=== PATIENT | female | born 1990 | race Hispanic/Latino ===

== ENCOUNTER 2021-07-20 13:48 | Outpatient (CLI) | payer OTHER, MEDICAID | END 2021-07-20 13:49 | disposition home or self-care (01) | LOC: CSHULT 13:48 | PROVIDERS: ATTEND Student in an Organized Health Care Education/Training Program | DX: R59.0 Localized enlarged lymph nodes (principal) | CPT/HCPCS: 76536; 76999 ==

== ENCOUNTER 2021-09-21 14:59 | Emergency (ER) | payer OTHER, MEDICAID ==
[2021-09-21 16:52] LABS: #Basophils 0.2 10x3/uL (0.0-0.2); #Eosinphils 1.1 10x3/uL (0.0-0.5); #Monocytes 1.5 10x3/uL (0.0-1.1); #Neutrophils 10.5 10x3/uL (1.5-8.4); %Basophils 0.9 % (0.0-2.0); %Eosinophils 6.3 % (0.0-6.0); %Monocytes 8.7 % (0.0-10.0); %Neutrophils 60.7 % (40.0-75.0); Hemoglobin 13.8 g/dL (12.0-15.5); Mean Corpuscular HGB CONC 32.2 g/dL (32.0-36.0); Mean Corpuscular Hemoglobin 28.5 pg (27.0-33.0); Mean Corpuscular Volume 88.4 fl (81.6-98.3); Mean Platelet Volume 9.9 fl (7.4-10.4); Platelet Count 421 10x3/uL (150-450); RBC Distribution Width 13.8 % (11.5-14.5); Red Blood Cell (RBC) Count 4.84 10x6/uL (3.90-5.03); White Blood Cell (WBC) Count 17.2 10x3/uL (3.5-10.5)
[2021-09-21] MEDS ORDERED: methylPREDNISolone Sod Succ/PF 125 MG/2 ML VIAL ONE (16:54)
[2021-09-21] MEDS ORDERED: Aspirin Chewable 81 MG TAB ONE (16:54)
[2021-09-21] MEDS ORDERED: diphenhydrAMINE 50 MG/ML VIAL ONE (16:55)
[2021-09-21 17:08] LABS: ALT (SGPT) 15 U/L (8-55); AST (SGOT) 13 U/L (5-34); Albumin 4.3 g/dL (3.5-5.0); Alkaline Phosphatase 64 U/L (40-110); Anion Gap 15 mmol/L (10-20); BUN (Urea Nitrogen) 15 mg/dL (7.0-18.7); Bilirubin, Total 0.4 mg/dL (0.2-1.2); CK (CPK) 71 U/L (29-168); Calc. Creatinine Clearance 0 mL/min (70-130); Calcium 9.5 mg/dL (7.8-10.44); Carbon Dioxide 25 mmol/L (22-29); Chloride 105 mmol/L (98-107); Glucose 93 mg/dL (70-105); Lipase 19 U/L (8-78); Potassium 4.1 mmol/L (3.5-5.1); Protein, Total 7.3 g/dL (6.0-8.3); Sodium 141 mmol/L (136-145)
[2021-09-21] MEDS ORDERED: Famotidine/PF 20 mg/2ml Vial ONE (17:13)
[2021-09-21 17:22] LABS: BHCG - Serum Negative (NEGATIVE); Pregs Control Background? CLEAR/WHITE (CLR/WHITE); Pregs Control Bar Appear? YES (CONTROL BAR)
[2021-09-21 17:46] LABS: PTT 32.6 sec (22.0-33.0); Prothrombin Time 10.6 sec (9.5-12.1)
[2021-09-21] MEDS ORDERED: Ondansetron PF 4 MG/2 ML Vial ONE (17:52)
[2021-09-21] MEDS ORDERED: Nitroglycerin 2% Ointment 1 INCH/1 GM Packet ONE (17:52)
[2021-09-21] MEDS ORDERED: Nitroglycerin 0.4 MG TAB 1 EACH ONE (18:54)
[2021-09-21 19:40] LABS: Troponin I Less than 0.010 ng/mL (< 0.028)
[2021-09-21] MEDS ORDERED: Mag-Al Plus 1200 MG/1200 MG/120 MG/30 ML UDCUP ONE (20:26)
[2021-09-21] MEDS ORDERED: Lidocaine Viscous Sol 2% 15 ml UD Cup ONE (20:26)
== END 2021-09-21 20:43 | disposition home or self-care (01) ==
LOC: CSHERS 14:59
DX: R07.9 Chest pain, unspecified (principal); R94.31 Abnormal electrocardiogram [ECG] [EKG]; I25.10 Atherosclerotic heart disease of native coronary artery without angina pectoris; I25.2 Old myocardial infarction; I50.9 Heart failure, unspecified; M32.9 Systemic lupus erythematosus, unspecified; Z86.718 Personal history of other venous thrombosis and embolism; Z79.899 Other long term (current) drug therapy
CPT/HCPCS: 36415; 71045; 71275; 80053; 82550; 83690; 84484; 84703; 85025; 85610; 85730; 93005; 96374; 96375; J1200; J2405; J2930; S0028

== ENCOUNTER 2021-10-14 11:09 | Emergency (ER) | payer OTHER ==
[2021-10-14 12:24] LABS: #Basophils 0.1 10x3/uL (0.0-0.2); %Basophils 0.8 % (0.0-2.0); %Eosinophils 8.4 % (0.0-6.0); %Lymphocytes 23.8 % (18.0-47.0); %Monocytes 8.2 % (0.0-10.0); %Neutrophils 58.6 % (40.0-75.0); Hemoglobin 13.3 g/dL (12.0-15.5); Mean Corpuscular HGB CONC 31.7 g/dL (32.0-36.0); Mean Corpuscular Hemoglobin 27.8 pg (27.0-33.0); Mean Corpuscular Volume 87.7 fl (81.6-98.3); Mean Platelet Volume 9.9 fl (7.4-10.4); Platelet Count 319 10x3/uL (150-450); RBC Distribution Width 13.4 % (11.5-14.5); Red Blood Cell (RBC) Count 4.78 10x6/uL (3.90-5.03)
[2021-10-14 12:50] LABS: ALT (SGPT) 22 U/L (8-55); AST (SGOT) 21 U/L (5-34); Albumin 3.9 g/dL (3.5-5.0); Alkaline Phosphatase 54 U/L (40-110); Anion Gap 11 mmol/L (10-20); BUN (Urea Nitrogen) 11 mg/dL (7.0-18.7); Bilirubin, Total 0.6 mg/dL (0.2-1.2); Calc. Creatinine Clearance 0 mL/min (70-130); Calcium 9.2 mg/dL (7.8-10.44); Carbon Dioxide 27 mmol/L (22-29); Chloride 100 mmol/L (98-107); Glucose 94 mg/dL (70-105); Potassium 4.1 mmol/L (3.5-5.1); Protein, Total 6.9 g/dL (6.0-8.3); Sodium 134 mmol/L (136-145)
[2021-10-14] MEDS ORDERED: Morphine 4 MG/ML VIAL ONE (14:18)
[2021-10-14] MEDS ORDERED: HYDROcodone/Acetaminophen 5/325 mg Tablet ONE (16:24)
[2021-10-14] MEDS ORDERED: Bumetanide 1 MG TAB PO SCH (17:00)
== END 2021-10-14 17:25 | disposition home or self-care (01) ==
LOC: CSHERS 11:09
DX: I50.9 Heart failure, unspecified (principal); I25.10 Atherosclerotic heart disease of native coronary artery without angina pectoris; I25.2 Old myocardial infarction; M32.9 Systemic lupus erythematosus, unspecified; C92.40 Acute promyelocytic leukemia, not having achieved remission
CPT/HCPCS: 36415; 71045; 80053; 83880; 84484; 85025; 93005; 93970; 94760; 96374; J2270

== ENCOUNTER 2022-02-02 14:43 | Outpatient (CLI) | payer OTHER, MEDICAID | END 2022-02-02 14:44 | disposition home or self-care (01) | LOC: CSHCT 14:43 | PROVIDERS: ATTEND Internal Medicine Cardiovascular Disease | DX: R55 Syncope and collapse (principal) | CPT/HCPCS: 70450 ==

== ENCOUNTER 2022-10-15 08:58 | Outpatient (CLI) | payer OTHER | END 2022-10-15 08:59 | disposition home or self-care (01) | LOC: CSHWCC 08:58 | PROVIDERS: ATTEND Nurse Practitioner Family | DX: T81.89XD Other complications of procedures, not elsewhere classified, subsequent encounter (principal) | CPT/HCPCS: 29445; 99203; G0463 ==

== ENCOUNTER 2022-10-20 08:35 | Outpatient (CLI) | payer OTHER | END 2022-10-20 08:36 | disposition home or self-care (01) | LOC: CSHWCC 08:35 | PROVIDERS: ATTEND Nurse Practitioner Family | DX: T81.89XD Other complications of procedures, not elsewhere classified, subsequent encounter (principal) ==

== ENCOUNTER 2022-10-26 08:27 | Outpatient (CLI) | payer OTHER | END 2022-10-26 08:28 | disposition home or self-care (01) | LOC: CSHWCC 08:27 | PROVIDERS: ATTEND Nurse Practitioner Family | DX: T81.89XD Other complications of procedures, not elsewhere classified, subsequent encounter (principal) ==

== ENCOUNTER 2022-10-29 11:37 | Outpatient (CLI) | payer OTHER | END 2022-10-29 11:38 | disposition home or self-care (01) | LOC: CSHWCC 11:37 | PROVIDERS: ATTEND Nurse Practitioner Family | DX: T81.89XD Other complications of procedures, not elsewhere classified, subsequent encounter (principal) ==

== ENCOUNTER 2022-10-30 17:13 | Emergency (ER) | payer MEDICAID ==
[~2022-10-30 17:13] MED LIST: Iopamidol 370 76% 100 ML VIAL ONE
[2022-10-30] MEDS ORDERED: diphenhydrAMINE 50 MG/ML VIAL ONE (18:26)
[2022-10-30] MEDS ORDERED: Famotidine/PF 20 mg/2ml Vial ONE (18:27)
[2022-10-30] MEDS ORDERED: methylPREDNISolone Sod Succ 40 MG VIAL ONE (18:27)
[2022-10-30 18:34] LABS: #Basophils 0.2 10x3/uL (0.0-0.2); #Eosinphils 0.7 10x3/uL (0.0-0.5); #Monocytes 1.8 10x3/uL (0.0-1.1); %Basophils 0.8 % (0.0-2.0); %Lymphocytes 22.4 % (18.0-47.0); %Monocytes 9.9 % (0.0-10.0); %Neutrophils 62.2 % (40.0-75.0); Hemoglobin 12.1 g/dL (12.0-15.5); Mean Corpuscular HGB CONC 31.8 g/dL (32.0-36.0); Mean Corpuscular Hemoglobin 27.5 pg (27.0-33.0); Mean Corpuscular Volume 86.6 fl (81.6-98.3); Mean Platelet Volume 10.3 fl (7.4-10.4); Platelet Count 372 10x3/uL (150-450); RBC Distribution Width 15.1 % (11.5-14.5); White Blood Cell (WBC) Count 17.7 10x3/uL (3.5-10.5)
[2022-10-30 19:01] LABS: ALT (SGPT) 18 U/L (8-55); AST (SGOT) 20 U/L (5-34); Albumin 4.1 g/dL (3.5-5.0); Alkaline Phosphatase 51 U/L (40-110); Anion Gap 15 mmol/L (10-20); BUN (Urea Nitrogen) 15 mg/dL (7.0-18.7); Bilirubin, Total 0.2 mg/dL (0.2-1.2); Calc. Creatinine Clearance 0 mL/min (70-130); Calcium 9.9 mg/dL (7.8-10.44); Carbon Dioxide 23 mmol/L (22-29); Chloride 103 mmol/L (98-107); Estimated GFR 95; Globulin 3.3 g/dL (2.4-3.5); Glucose 85 mg/dL (70-105); Potassium 3.8 mmol/L (3.5-5.1); Protein, Total 7.4 g/dL (6.0-8.3); Sodium 137 mmol/L (136-145)
[2022-10-30] MEDS ORDERED: Ondansetron PF 4 MG/2 ML Vial ONE (19:57)
[2022-10-30] MEDS ORDERED: Morphine 2 MG/ML VIAL ONE (19:58)
[2022-10-30] MEDS ORDERED: Morphine 4 MG/ML VIAL ONE (20:33)
== END 2022-10-30 20:45 | disposition home or self-care (01) ==
LOC: CSHERS 17:13
DX: M79.661 Pain in right lower leg (principal); R07.89 Other chest pain; I25.10 Atherosclerotic heart disease of native coronary artery without angina pectoris; Z86.718 Personal history of other venous thrombosis and embolism
CPT/HCPCS: 80053; 84484; 85025; 93005; 96374; 96375; 96376; J1200; J2270; J2405; J2920; Q9967; S0028

== ENCOUNTER 2022-11-02 09:14 | Outpatient (CLI) | payer MEDICAID | END 2022-11-02 09:15 | disposition home or self-care (01) | LOC: CSHWCC 09:14 | PROVIDERS: ATTEND Nurse Practitioner Family | DX: T81.89XD Other complications of procedures, not elsewhere classified, subsequent encounter (principal) | CPT/HCPCS: 99213; G0463 ==

== ENCOUNTER 2022-11-09 08:11 | Outpatient (CLI) | payer MEDICAID | END 2022-11-09 08:12 | disposition home or self-care (01) | LOC: CSHWCC 08:11 | PROVIDERS: ATTEND Nurse Practitioner Family | DX: T81.89XD Other complications of procedures, not elsewhere classified, subsequent encounter (principal) ==

== ENCOUNTER 2022-11-12 08:08 | Outpatient (CLI) | payer MEDICAID | END 2022-11-12 08:09 | disposition home or self-care (01) | LOC: CSHWCC 08:08 | PROVIDERS: ATTEND Nurse Practitioner Family | DX: T81.89XD Other complications of procedures, not elsewhere classified, subsequent encounter (principal) | CPT/HCPCS: 99212; G0463 ==

== ENCOUNTER 2022-11-16 10:49 | Outpatient (CLI) | payer MEDICAID | END 2022-11-16 10:50 | disposition home or self-care (01) | LOC: CSHWCC 10:49 | PROVIDERS: ATTEND Nurse Practitioner Family | DX: T81.89XD Other complications of procedures, not elsewhere classified, subsequent encounter (principal) | CPT/HCPCS: 99213; G0463 ==

== ENCOUNTER 2022-11-23 16:04 | Emergency (ER) | payer MEDICAID, OTHER ==
[2022-11-23] MEDS ORDERED: HYDROcodone/Acetaminophen 5/325 mg Tablet ONE (17:38)
== END 2022-11-23 17:36 | disposition home or self-care (01) ==
LOC: CSHERS 16:04
DX: S81.831A Puncture wound without foreign body, right lower leg, initial encounter (principal); I25.10 Atherosclerotic heart disease of native coronary artery without angina pectoris; X58.XXXA Exposure to other specified factors, initial encounter
CPT/HCPCS: 99283

== ENCOUNTER 2022-11-24 11:56 | Outpatient (CLI) | payer MEDICAID | END 2022-11-24 11:57 | disposition home or self-care (01) | LOC: CSHWCC 11:56 | PROVIDERS: ATTEND Nurse Practitioner Family | DX: T81.89XS Other complications of procedures, not elsewhere classified, sequela (principal) ==

== ENCOUNTER 2022-11-24 12:41 | Inpatient (IN) | payer MEDICAID ==
[2022-11-24 13:54] LABS: Hemoglobin 13.1 g/dL (12.0-15.5); Mean Corpuscular HGB CONC 32.5 g/dL (32.0-36.0); Mean Corpuscular Hemoglobin 26.7 pg (27.0-33.0); Mean Corpuscular Volume 82.1 fl (81.6-98.3); Mean Platelet Volume 9.8 fl (7.4-10.4); Platelet Count 419 10x3/uL (150-450); RBC Distribution Width 14.6 % (11.5-14.5); Red Blood Cell (RBC) Count 4.91 10x6/uL (3.90-5.03); White Blood Cell (WBC) Count 23.9 10x3/uL (3.5-10.5)
[2022-11-24 13:55] LABS: ALT (SGPT) 28 U/L (8-55); AST (SGOT) 20 U/L (5-34); Albumin 4.2 g/dL (3.5-5.0); Alkaline Phosphatase 58 U/L (40-110); Anion Gap 14 mmol/L (10-20); BUN (Urea Nitrogen) 10 mg/dL (7.0-18.7); Bilirubin, Total 0.5 mg/dL (0.2-1.2); Calc. Creatinine Clearance 0 mL/min (70-130); Calcium 9.5 mg/dL (7.8-10.44); Carbon Dioxide 19 mmol/L (22-29); Chloride 103 mmol/L (98-107); Estimated GFR 100; Globulin 3.3 g/dL (2.4-3.5); Glucose 111 mg/dL (70-105); Potassium 3.5 mmol/L (3.5-5.1); Protein, Total 7.5 g/dL (6.0-8.3); Sodium 132 mmol/L (136-145)
[2022-11-24 14:05] LABS: MDiff Complete? YES
[2022-11-24 14:07] LABS: Eosinophils 1 % (0-10); Lymphocytes 11 % (21-51); Monocytes 4 % (0-10); Neutrophil 84 % (42-75)
[2022-11-24 14:09] LABS: Platelet Morphology Comment Appears Adequate; RBC Morphology Normal
[2022-11-24] MEDS ORDERED: Ondansetron PF 4 MG/2 ML Vial ONE (15:06)
[2022-11-24] MEDS ORDERED: Morphine 4 MG/ML VIAL ONE ×3 (15:06→20:06)
[2022-11-24] MEDS ORDERED: cefTRIAXone\\ROCEPHIN 2 GM VIAL ONE (15:07)
[2022-11-24] MEDS ORDERED: Acetaminophen 325 MG TAB PO PRN (17:47)
[2022-11-24] MEDS ORDERED: Ondansetron ODT 4 MG TAB PO PRN (17:47)
[2022-11-24] MEDS ORDERED: Sodium Chloride 0.9% 1,000 ML IV SCH (18:00)
[2022-11-24] MEDS ORDERED: Promethazine HCl 25 MG/ML VIAL ONE (18:08)
[2022-11-24] MEDS: Morphine 4 MG/ML VIAL SLOW IVP PRN (20:28)
[2022-11-25] MEDS: Morphine 4 MG/ML VIAL SLOW IVP PRN ×6 (00:28→22:35)
[2022-11-25] MEDS: Gabapentin 300 MG CAP PO SCH ×4 (00:28→22:37)
[2022-11-25] MEDS: Atorvastatin Calcium 40 MG TAB PO SCH ×2 (00:29→22:38)
[2022-11-25] MEDS: Sacubitril 49 MG/Valsartan 51 MG TABLET PO SCH ×3 (00:45→22:38)
[2022-11-25 00:59] VITALS: BMI 56.7
[2022-11-25 05:07] LABS: #Basophils 0.1 10x3/uL (0.0-0.2); #Eosinphils 0.3 10x3/uL (0.0-0.5); #Monocytes 0.9 10x3/uL (0.0-1.1); #Neutrophils 7.3 10x3/uL (1.5-8.4); %Eosinophils 2.8 % (0.0-6.0); %Lymphocytes 24.8 % (18.0-47.0); %Neutrophils 62.7 % (40.0-75.0); Hemoglobin 12.3 g/dL (12.0-15.5); Mean Corpuscular HGB CONC 31.8 g/dL (32.0-36.0); Mean Corpuscular Hemoglobin 26.7 pg (27.0-33.0); Mean Corpuscular Volume 83.9 fl (81.6-98.3); Mean Platelet Volume 10.4 fl (7.4-10.4); Platelet Count 376 10x3/uL (150-450); RBC Distribution Width 14.7 % (11.5-14.5); Red Blood Cell (RBC) Count 4.61 10x6/uL (3.90-5.03); White Blood Cell (WBC) Count 11.6 10x3/uL (3.5-10.5)
[2022-11-25] MEDS: Ondansetron PF 4 MG/2 ML Vial IVP PRN (05:14)
[2022-11-25 05:35] LABS: Anion Gap 14 mmol/L (10-20); BUN (Urea Nitrogen) 7 mg/dL (7.0-18.7); Calc. Creatinine Clearance 228 mL/min (70-130); Calcium 9.2 mg/dL (7.8-10.44); Carbon Dioxide 22 mmol/L (22-29); Chloride 104 mmol/L (98-107); Estimated GFR 107; Glucose 109 mg/dL (70-105); Potassium 3.5 mmol/L (3.5-5.1); Sodium 136 mmol/L (136-145)
[2022-11-25] MEDS: FLUoxetine HCl 20 MG CAP PO SCH (08:18)
[2022-11-25] MEDS: Aspirin Chewable 81 MG TAB PO SCH (08:18)
[2022-11-25] MEDS: Clindamycin/D5W 900 MG in Premix Bag 1 BAG IVPB SCH ×2 (15:30→22:34)
[2022-11-25] MEDS ORDERED: diphenhydrAMINE 50 MG/ML VIAL IVP SCH (19:15)
[2022-11-25] MEDS ORDERED: methylPREDNISolone Sod Succ/PF 125 MG/2 ML VIAL IVP SCH (19:15)
[2022-11-25] MEDS ORDERED: Famotidine/PF 20 mg/2ml Vial SLOW IVP SCH (19:15)
[2022-11-25] MEDS ORDERED: Bumetanide 1 MG TAB PO SCH (21:00)
[2022-11-25] MEDS ORDERED: Vancomycin 1.5 GRAM/300 ML BAG IVPB SCH (21:00)
[2022-11-25] MEDS: Bumetanide 1 MG TAB PO SCH (22:37)
[2022-11-25] MEDS: Carvedilol 25 MG TAB PO SCH (22:37)
[2022-11-26] MEDS: Promethazine HCl 12.5 MG in Sodium Chloride 0.9% 50 ML IVPB PRN ×2 (01:05→09:23)
[2022-11-26] MEDS: Morphine 4 MG/ML VIAL SLOW IVP PRN ×5 (02:01→23:31)
[2022-11-26 05:20] LABS: Anion Gap 14 mmol/L (10-20); BUN (Urea Nitrogen) 7 mg/dL (7.0-18.7); Calc. Creatinine Clearance 177 mL/min (70-130); Calcium 9.3 mg/dL (7.8-10.44); Carbon Dioxide 23 mmol/L (22-29); Chloride 104 mmol/L (98-107); Estimated GFR 79; Glucose 164 mg/dL (70-105); Potassium 3.7 mmol/L (3.5-5.1); Sodium 137 mmol/L (136-145)
[2022-11-26 05:27] LABS: #Monocytes 0.1 10x3/uL (0.0-1.1); #Neutrophils 4.8 10x3/uL (1.5-8.4); %Basophils 0.7 % (0.0-2.0); %Lymphocytes 17.5 % (18.0-47.0); %Monocytes 0.8 % (0.0-10.0); %Neutrophils 80.5 % (40.0-75.0); Hemoglobin 12.7 g/dL (12.0-15.5); Mean Corpuscular HGB CONC 31.5 g/dL (32.0-36.0); Mean Corpuscular Hemoglobin 26.6 pg (27.0-33.0); Mean Corpuscular Volume 84.3 fl (81.6-98.3); Mean Platelet Volume 10.8 fl (7.4-10.4); Platelet Count 393 10x3/uL (150-450); RBC Distribution Width 14.6 % (11.5-14.5); Red Blood Cell (RBC) Count 4.78 10x6/uL (3.90-5.03)
[2022-11-26] MEDS: Clindamycin/D5W 900 MG in Premix Bag 1 BAG IVPB SCH ×3 (06:38→23:44)
[2022-11-26] MEDS ORDERED: Bumetanide 1 MG TAB PO SCH (09:00)
[2022-11-26] MEDS: FLUoxetine HCl 20 MG CAP PO SCH (09:33)
[2022-11-26] MEDS: Aspirin Chewable 81 MG TAB PO SCH (09:34)
[2022-11-26] MEDS: Carvedilol 25 MG TAB PO SCH ×2 (09:34→23:43)
[2022-11-26] MEDS: Spironolactone 25 MG TAB PO SCH (09:35)
[2022-11-26] MEDS: Gabapentin 300 MG CAP PO SCH ×3 (09:35→23:43)
[2022-11-26] MEDS: Empagliflozin 10 MG TAB PO SCH (09:36)
[2022-11-26] MEDS: Bumetanide 1 MG TAB PO SCH ×2 (09:37→23:43)
[2022-11-26] MEDS: Sacubitril 49 MG/Valsartan 51 MG TABLET PO SCH ×2 (09:37→23:31)
[2022-11-26] MEDS: Fenofibrate Nanocrystallized 145 MG TAB PO SCH (09:37)
[2022-11-26 11:47] LABS: Vancomycin, Trough 17.5 ug/mL
[2022-11-26] MEDS ORDERED: diphenhydrAMINE 50 MG/ML VIAL IVP SCH (13:00)
[2022-11-26] MEDS: Atorvastatin Calcium 40 MG TAB PO SCH (23:44)
[2022-11-27] MEDS: Morphine 4 MG/ML VIAL SLOW IVP PRN ×3 (03:39→13:25)
[2022-11-27] MEDS ORDERED: HYDROcodone/Acetaminophen 10/325 mg Tablet PO SCH (06:15)
[2022-11-27] MEDS: Clindamycin/D5W 900 MG in Premix Bag 1 BAG IVPB SCH ×3 (07:20→21:19)
[2022-11-27] MEDS: Spironolactone 25 MG TAB PO SCH (08:12)
[2022-11-27] MEDS: Sacubitril 49 MG/Valsartan 51 MG TABLET PO SCH ×2 (08:12→21:18)
[2022-11-27] MEDS: Carvedilol 25 MG TAB PO SCH ×2 (08:12→21:13)
[2022-11-27] MEDS: Bumetanide 1 MG TAB PO SCH ×2 (08:12→21:12)
[2022-11-27] MEDS: Aspirin Chewable 81 MG TAB PO SCH (08:12)
[2022-11-27] MEDS: Gabapentin 300 MG CAP PO SCH ×3 (08:12→21:14)
[2022-11-27] MEDS: FLUoxetine HCl 20 MG CAP PO SCH (08:12)
[2022-11-27] MEDS: Fenofibrate Nanocrystallized 145 MG TAB PO SCH (08:12)
[2022-11-27] MEDS: Empagliflozin 10 MG TAB PO SCH (08:16)
[2022-11-27] MEDS: Promethazine HCl 12.5 MG in Sodium Chloride 0.9% 50 ML IVPB PRN (10:03)
[2022-11-27] MEDS ORDERED: HYDROmorphone 2 MG TAB PO PRN (15:23)
[2022-11-27] MEDS ORDERED: Naloxone HCl 0.4 mg/ml Vial IV PRN (15:41)
[2022-11-27] MEDS: Nystatin 500,000 UNITS/5 ML UDCUP SSW SCH ×2 (15:56→21:15)
[2022-11-27] MEDS: Ondansetron PF 4 MG/2 ML Vial IVP PRN (18:13)
[2022-11-27] MEDS: HYDROcodone/Acetaminophen 10/325 mg Tablet PO PRN (21:12)
[2022-11-27] MEDS: Atorvastatin Calcium 40 MG TAB PO SCH (21:13)
[2022-11-28] MEDS: HYDROcodone/Acetaminophen 10/325 mg Tablet PO PRN ×3 (03:11→23:12)
[2022-11-28 04:38] LABS: Anion Gap 14 mmol/L (10-20); BUN (Urea Nitrogen) 19 mg/dL (7.0-18.7); Calc. Creatinine Clearance 125 mL/min (70-130); Calcium 9.1 mg/dL (7.8-10.44); Carbon Dioxide 29 mmol/L (22-29); Chloride 100 mmol/L (98-107); Estimated GFR 52; Glucose 98 mg/dL (70-105); Potassium 3.6 mmol/L (3.5-5.1); Sodium 139 mmol/L (136-145)
[2022-11-28 04:39] LABS: Hemoglobin 12.3 g/dL (12.0-15.5); Mean Corpuscular HGB CONC 31.6 g/dL (32.0-36.0); Mean Corpuscular Hemoglobin 26.3 pg (27.0-33.0); Mean Corpuscular Volume 83.1 fl (81.6-98.3); Mean Platelet Volume 10.4 fl (7.4-10.4); Platelet Count 451 10x3/uL (150-450); RBC Distribution Width 14.9 % (11.5-14.5); Red Blood Cell (RBC) Count 4.68 10x6/uL (3.90-5.03); White Blood Cell (WBC) Count 12.1 10x3/uL (3.5-10.5)
[2022-11-28 05:15] LABS: MDiff Complete? YES
[2022-11-28 05:27] LABS: Eosinophils 1 % (0-10); Lymphocytes 43 % (21-51); Monocytes 12 % (0-10); Neutrophil 41 % (42-75); Reactive Lymphocytes 3 % (0-10)
[2022-11-28 05:28] LABS: Platelet Morphology Comment Appears Adequate; RBC Morphology Normal
[2022-11-28] MEDS: Clindamycin/D5W 900 MG in Premix Bag 1 BAG IVPB SCH ×3 (07:19→21:09)
[2022-11-28] MEDS: Lactated Ringer's 1,000 ML IV SCH ×2 (08:48→16:29)
[2022-11-28] MEDS: Sacubitril 49 MG/Valsartan 51 MG TABLET PO SCH ×2 (08:48→21:06)
[2022-11-28] MEDS: Fenofibrate Nanocrystallized 145 MG TAB PO SCH (08:48)
[2022-11-28] MEDS: Nystatin 500,000 UNITS/5 ML UDCUP SSW SCH ×4 (08:52→21:09)
[2022-11-28] MEDS: Spironolactone 25 MG TAB PO SCH (08:52)
[2022-11-28] MEDS: Aspirin Chewable 81 MG TAB PO SCH (08:52)
[2022-11-28] MEDS: Carvedilol 25 MG TAB PO SCH ×2 (08:52→21:07)
[2022-11-28] MEDS: FLUoxetine HCl 20 MG CAP PO SCH (08:52)
[2022-11-28] MEDS: Gabapentin 300 MG CAP PO SCH ×3 (08:53→21:08)
[2022-11-28] MEDS: Empagliflozin 10 MG TAB PO SCH (08:55)
[2022-11-28] MEDS: Morphine IR Tab 15 MG TAB PO PRN ×2 (16:38→21:05)
[2022-11-28] MEDS: Ondansetron PF 4 MG/2 ML Vial IVP PRN (16:38)
[2022-11-28] MEDS: Atorvastatin Calcium 40 MG TAB PO SCH (21:09)
[2022-11-29] MEDS: Lactated Ringer's 1,000 ML IV SCH ×2 (02:00→08:30)
[2022-11-29] MEDS: HYDROcodone/Acetaminophen 10/325 mg Tablet PO PRN ×2 (03:26→08:18)
[2022-11-29 05:13] LABS: Hemoglobin 11.7 g/dL (12.0-15.5); Mean Corpuscular Hemoglobin 25.9 pg (27.0-33.0); Mean Corpuscular Volume 83.4 fl (81.6-98.3); Mean Platelet Volume 10.8 fl (7.4-10.4); Platelet Count 437 10x3/uL (150-450); RBC Distribution Width 14.7 % (11.5-14.5); Red Blood Cell (RBC) Count 4.52 10x6/uL (3.90-5.03); White Blood Cell (WBC) Count 14.7 10x3/uL (3.5-10.5)
[2022-11-29 05:33] LABS: Anion Gap 14 mmol/L (10-20); BUN (Urea Nitrogen) 15 mg/dL (7.0-18.7); Calc. Creatinine Clearance 134 mL/min (70-130); Calcium 9.1 mg/dL (7.8-10.44); Carbon Dioxide 26 mmol/L (22-29); Chloride 99 mmol/L (98-107); Estimated GFR 57; Glucose 88 mg/dL (70-105); Potassium 3.8 mmol/L (3.5-5.1); Sodium 135 mmol/L (136-145)
[2022-11-29] MEDS: Ondansetron PF 4 MG/2 ML Vial IVP PRN (06:08)
[2022-11-29] MEDS: Clindamycin/D5W 900 MG in Premix Bag 1 BAG IVPB SCH ×2 (06:10→13:32)
[2022-11-29] MEDS: Morphine IR Tab 15 MG TAB PO PRN ×2 (06:16→12:11)
[2022-11-29 06:41] LABS: Band 2 % (5-11); Eosinophils 3 % (0-10); Lymphocytes 34 % (21-51); Monocytes 10 % (0-10); Neutrophil 51 % (42-75)
[2022-11-29 06:42] LABS: MDiff Complete? YES; Platelet Morphology Comment Appears Adequate
[2022-11-29] MEDS: Spironolactone 25 MG TAB PO SCH (08:18)
[2022-11-29] MEDS: Gabapentin 300 MG CAP PO SCH (08:19)
[2022-11-29] MEDS: Sacubitril 49 MG/Valsartan 51 MG TABLET PO SCH (08:19)
[2022-11-29] MEDS: Carvedilol 25 MG TAB PO SCH (08:20)
[2022-11-29] MEDS: Fenofibrate Nanocrystallized 145 MG TAB PO SCH (08:20)
[2022-11-29] MEDS: Aspirin Chewable 81 MG TAB PO SCH (08:20)
[2022-11-29] MEDS: Nystatin 500,000 UNITS/5 ML UDCUP SSW SCH ×2 (08:20→12:12)
[2022-11-29] MEDS: Empagliflozin 10 MG TAB PO SCH (08:20)
[2022-11-29] MEDS: FLUoxetine HCl 20 MG CAP PO SCH (08:20)
[2022-11-29 11:45] VITALS: BP 100/52; TEMP 98.1
== END 2022-11-29 13:30 | disposition home or self-care (01) | DRG 862 ==
LOC: CSHERS 12:41 → CSHERHOLD 18:28 → CSHTELE 11-25 00:03
PROVIDERS: ADMIT Hospitalist; ATTEND Family Medicine
DX: T81.41XA Infection following a procedure, superficial incisional surgical site, initial encounter (principal); A41.9 Sepsis, unspecified organism; I42.8 Other cardiomyopathies; L03.115 Cellulitis of right lower limb; Z68.43 Body mass index [BMI] 50.0-59.9, adult; I50.32 Chronic diastolic (congestive) heart failure; D68.61 Antiphospholipid syndrome; L03.314 Cellulitis of groin; Y83.8 Other surgical procedures as the cause of abnormal reaction of the patient, or of later complication, without mention of misadventure at the time of the procedure; G89.4 Chronic pain syndrome; M32.9 Systemic lupus erythematosus, unspecified; F41.9 Anxiety disorder, unspecified; F32.A Depression, unspecified; E66.9 Obesity, unspecified; K21.9 Gastro-esophageal reflux disease without esophagitis; G43.909 Migraine, unspecified, not intractable, without status migrainosus; Z95.810 Presence of automatic (implantable) cardiac defibrillator; Z98.890 Other specified postprocedural states; Z90.49 Acquired absence of other specified parts of digestive tract; Z90.81 Acquired absence of spleen; I25.2 Old myocardial infarction; Z86.718 Personal history of other venous thrombosis and embolism; Z86.711 Personal history of pulmonary embolism; Z91.041 Radiographic dye allergy status; Z91.040 Latex allergy status; Z88.0 Allergy status to penicillin; Z91.013 Allergy to seafood; Z91.018 Allergy to other foods; Z91.09 Other allergy status, other than to drugs and biological substances; Z79.82 Long term (current) use of aspirin; Z79.899 Other long term (current) drug therapy
CPT/HCPCS: 36415; 74176; 76999; 80048; 80053; 80202; 83605; 84702; 85025; 87040; 87070; 87077; 87205; 94760; 96361; 96365; 96367; 96375; 96376; 97139; J0696; J1200; J2270; J2405; J2550; J2930; J3490; J7030; J7050; J7120; S0028

== ENCOUNTER 2022-11-30 13:00 | Outpatient (CLI) | payer MEDICAID | END 2022-11-30 13:01 | disposition home or self-care (01) | LOC: CSHWCC 13:00 | PROVIDERS: ATTEND Nurse Practitioner Family | DX: T81.89XS Other complications of procedures, not elsewhere classified, sequela (principal) | CPT/HCPCS: 99213; G0463 ==

== ENCOUNTER 2022-12-05 11:52 | Emergency (ER) | payer MEDICAID ==
[2022-12-05] MEDS ORDERED: Clindamycin/D5W 900 MG in Premix Bag 1 BAG IVPB SCH (13:15)
[2022-12-05 15:07] LABS: #Basophils 0.1 10x3/uL (0.0-0.2); #Eosinphils 0.9 10x3/uL (0.0-0.5); #Monocytes 1.4 10x3/uL (0.0-1.1); #Neutrophils 5.2 10x3/uL (1.5-8.4); %Basophils 1.3 % (0.0-2.0); %Eosinophils 9.3 % (0.0-6.0); %Lymphocytes 20.2 % (18.0-47.0); %Monocytes 14.8 % (0.0-10.0); %Neutrophils 54.1 % (40.0-75.0); Hemoglobin 11.7 g/dL (12.0-15.5); Mean Corpuscular HGB CONC 32.4 g/dL (32.0-36.0); Mean Corpuscular Hemoglobin 26.4 pg (27.0-33.0); Mean Corpuscular Volume 81.5 fl (81.6-98.3); Mean Platelet Volume 9.8 fl (7.4-10.4); Platelet Count 464 10x3/uL (150-450); RBC Distribution Width 14.6 % (11.5-14.5); Red Blood Cell (RBC) Count 4.43 10x6/uL (3.90-5.03); White Blood Cell (WBC) Count 9.7 10x3/uL (3.5-10.5)
[2022-12-05] MEDS ORDERED: Ondansetron PF 4 MG/2 ML Vial ONE (15:09)
[2022-12-05] MEDS ORDERED: Morphine 4 MG/ML VIAL ONE (15:09)
[2022-12-05 15:20] LABS: Anion Gap 13 mmol/L (10-20); BUN (Urea Nitrogen) 8 mg/dL (7.0-18.7); Calc. Creatinine Clearance 0 mL/min (70-130); Calcium 9.6 mg/dL (7.8-10.44); Carbon Dioxide 24 mmol/L (22-29); Chloride 104 mmol/L (98-107); Estimated GFR 66; Glucose 99 mg/dL (70-105); Potassium 3.9 mmol/L (3.5-5.1); Sodium 137 mmol/L (136-145)
[2022-12-06] MEDS ORDERED: Morphine 4 MG/ML VIAL ONE (03:56)
[2022-12-06] MEDS ORDERED: cefTRIAXone\\ROCEPHIN 2 GM VIAL ONE (03:56)
== END 2022-12-05 15:55 | disposition home or self-care (01) ==
LOC: CSHERS 11:52
DX: M79.651 Pain in right thigh (principal); I25.10 Atherosclerotic heart disease of native coronary artery without angina pectoris; Z86.711 Personal history of pulmonary embolism; Z86.718 Personal history of other venous thrombosis and embolism; I50.9 Heart failure, unspecified
CPT/HCPCS: 80048; 83605; 85025; 96365; 96375; J2270; J2405; J3490

== ENCOUNTER 2022-12-08 15:10 | Emergency (ER) | payer MEDICAID ==
[2022-12-08] MEDS ORDERED: Morphine 4 MG/ML VIAL ONE ×2 (16:20→18:09)
[2022-12-08] MEDS ORDERED: Ondansetron PF 4 MG/2 ML Vial ONE ×2 (16:20→18:09)
[2022-12-08 16:30] LABS: #Basophils 0.1 10x3/uL (0.0-0.2); #Eosinphils 0.7 10x3/uL (0.0-0.5); #Monocytes 0.8 10x3/uL (0.0-1.1); #Neutrophils 4.5 10x3/uL (1.5-8.4); %Basophils 1.1 % (0.0-2.0); %Eosinophils 7.6 % (0.0-6.0); %Lymphocytes 32.7 % (18.0-47.0); %Neutrophils 49.4 % (40.0-75.0); Hemoglobin 11.6 g/dL (12.0-15.5); Mean Corpuscular Volume 81.2 fl (81.6-98.3); Mean Platelet Volume 10.1 fl (7.4-10.4); Platelet Count 395 10x3/uL (150-450); RBC Distribution Width 15.1 % (11.5-14.5); Red Blood Cell (RBC) Count 4.46 10x6/uL (3.90-5.03); White Blood Cell (WBC) Count 9.1 10x3/uL (3.5-10.5)
[2022-12-08 16:49] LABS: BHCG - Serum Negative (NEGATIVE); Pregs Control Background? CLEAR/WHITE (CLR/WHITE); Pregs Control Bar Appear? YES (CONTROL BAR)
[2022-12-08 16:55] LABS: ALT (SGPT) 17 U/L (8-55); AST (SGOT) 17 U/L (5-34); Albumin 3.9 g/dL (3.5-5.0); Alkaline Phosphatase 42 U/L (40-110); Anion Gap 12 mmol/L (10-20); BUN (Urea Nitrogen) 8 mg/dL (7.0-18.7); Bilirubin, Total 0.2 mg/dL (0.2-1.2); Calc. Creatinine Clearance 0 mL/min (70-130); Calcium 9.4 mg/dL (7.8-10.44); Carbon Dioxide 23 mmol/L (22-29); Chloride 108 mmol/L (98-107); Estimated GFR 88; Globulin 3.2 g/dL (2.4-3.5); Glucose 95 mg/dL (70-105); Potassium 3.8 mmol/L (3.5-5.1); Protein, Total 7.1 g/dL (6.0-8.3); Sodium 139 mmol/L (136-145)
== END 2022-12-08 18:22 | disposition home or self-care (01) ==
LOC: CSHERS 15:10
DX: R07.9 Chest pain, unspecified (principal); Z86.718 Personal history of other venous thrombosis and embolism; I50.9 Heart failure, unspecified; I25.10 Atherosclerotic heart disease of native coronary artery without angina pectoris; I25.2 Old myocardial infarction
CPT/HCPCS: 71045; 80053; 83880; 84484; 84703; 85025; 85379; 93005; 96374; 96375; 96376; J2270; J2405

== ENCOUNTER 2022-12-13 16:21 | Emergency (ER) | payer MEDICAID ==
[2022-12-13 18:08] LABS: ALT (SGPT) 19 U/L (8-55); AST (SGOT) 21 U/L (5-34); Albumin 4.3 g/dL (3.5-5.0); Alkaline Phosphatase 53 U/L (40-110); Anion Gap 14 mmol/L (10-20); BUN (Urea Nitrogen) 11 mg/dL (7.0-18.7); Bilirubin, Total 0.4 mg/dL (0.2-1.2); Calc. Creatinine Clearance 0 mL/min (70-130); Calcium 9.8 mg/dL (7.8-10.44); Carbon Dioxide 20 mmol/L (22-29); Chloride 107 mmol/L (98-107); Estimated GFR 95; Globulin 3.5 g/dL (2.4-3.5); Glucose 92 mg/dL (70-105); Potassium 3.7 mmol/L (3.5-5.1); Protein, Total 7.8 g/dL (6.0-8.3); Sodium 137 mmol/L (136-145)
[2022-12-13 18:42] LABS: #Basophils 0.1 10x3/uL (0.0-0.2); #Eosinphils 0.8 10x3/uL (0.0-0.5); #Monocytes 0.9 10x3/uL (0.0-1.1); #Neutrophils 6.6 10x3/uL (1.5-8.4); %Eosinophils 6.4 % (0.0-6.0); %Lymphocytes 29.9 % (18.0-47.0); %Monocytes 7.4 % (0.0-10.0); Hemoglobin 13.5 g/dL (12.0-15.5); Mean Corpuscular HGB CONC 32.6 g/dL (32.0-36.0); Mean Corpuscular Hemoglobin 25.9 pg (27.0-33.0); Mean Corpuscular Volume 79.3 fl (81.6-98.3); Mean Platelet Volume 10.9 fl (7.4-10.4); Platelet Count 419 10x3/uL (150-450); RBC Distribution Width 15.2 % (11.5-14.5); Red Blood Cell (RBC) Count 5.22 10x6/uL (3.90-5.03)
[2022-12-13] MEDS ORDERED: Ondansetron ODT 4 MG TAB ONE (20:01)
[2022-12-13] MEDS ORDERED: HYDROcodone/Acetaminophen 5/325 mg Tablet ONE (20:02)
== END 2022-12-13 21:25 | disposition home or self-care (01) ==
LOC: CSHERS 16:21
DX: L03.314 Cellulitis of groin (principal); I25.10 Atherosclerotic heart disease of native coronary artery without angina pectoris; Z86.718 Personal history of other venous thrombosis and embolism; I50.9 Heart failure, unspecified
CPT/HCPCS: 36415; 80053; 85025; Q0162

== ENCOUNTER 2022-12-14 08:51 | Outpatient (CLI) | payer MEDICAID | END 2022-12-14 08:52 | disposition home or self-care (01) | LOC: CSHWCC 08:51 | PROVIDERS: ATTEND Nurse Practitioner Family | DX: T81.89XS Other complications of procedures, not elsewhere classified, sequela (principal) | CPT/HCPCS: 99212; G0463 ==

== ENCOUNTER 2022-12-21 11:16 | Emergency (ER) | payer MEDICAID ==
[2022-12-21 13:51] LABS: #Basophils 0.2 10x3/uL (0.0-0.2); #Eosinphils 1.2 10x3/uL (0.0-0.5); #Monocytes 1.5 10x3/uL (0.0-1.1); #Neutrophils 8.3 10x3/uL (1.5-8.4); %Eosinophils 8.2 % (0.0-6.0); %Lymphocytes 22.6 % (18.0-47.0); %Monocytes 10.3 % (0.0-10.0); %Neutrophils 57.5 % (40.0-75.0); Hemoglobin 13.2 g/dL (12.0-15.5); Mean Corpuscular HGB CONC 31.2 g/dL (32.0-36.0); Mean Corpuscular Hemoglobin 25.7 pg (27.0-33.0); Mean Corpuscular Volume 82.3 fl (81.6-98.3); Mean Platelet Volume 10.6 fl (7.4-10.4); Platelet Count 483 10x3/uL (150-450); RBC Distribution Width 15.1 % (11.5-14.5); Red Blood Cell (RBC) Count 5.14 10x6/uL (3.90-5.03); White Blood Cell (WBC) Count 14.4 10x3/uL (3.5-10.5)
[2022-12-21 14:03] LABS: ALT (SGPT) 26 U/L (8-55); AST (SGOT) 31 U/L (5-34); Albumin 4.4 g/dL (3.5-5.0); Alkaline Phosphatase 52 U/L (40-110); Anion Gap 13 mmol/L (10-20); BUN (Urea Nitrogen) 15 mg/dL (7.0-18.7); Bilirubin, Total 0.4 mg/dL (0.2-1.2); Calc. Creatinine Clearance 0 mL/min (70-130); Calcium 9.8 mg/dL (7.8-10.44); Carbon Dioxide 24 mmol/L (22-29); Chloride 104 mmol/L (98-107); Estimated GFR 66; Globulin 3.2 g/dL (2.4-3.5); Glucose 92 mg/dL (70-105); Potassium 4.3 mmol/L (3.5-5.1); Protein, Total 7.6 g/dL (6.0-8.3); Sodium 137 mmol/L (136-145)
[2022-12-21] MEDS ORDERED: HYDROcodone/Acetaminophen 5/325 mg Tablet ONE (14:39)
== END 2022-12-21 14:45 | disposition home or self-care (01) ==
LOC: CSHERS 11:16
DX: L03.115 Cellulitis of right lower limb (principal); D72.829 Elevated white blood cell count, unspecified
CPT/HCPCS: 36415; 80053; 85025

== ENCOUNTER 2023-01-08 14:45 | Emergency (ER) | payer MEDICAID ==
[~2023-01-08 14:45] MED LIST changes: +Iopamidol 300 61% 100 ML VIAL FS ONE; -Iopamidol 370 76% 100 ML VIAL ONE
[2023-01-08] MEDS ORDERED: diphenhydrAMINE 50 MG/ML VIAL ONE (15:37)
[2023-01-08] MEDS ORDERED: Famotidine/PF 20 mg/2ml Vial ONE (15:37)
[2023-01-08] MEDS ORDERED: methylPREDNISolone Sod Succ 40 MG VIAL ONE (15:37)
[2023-01-08 15:39] LABS: #Basophils 0.1 10x3/uL (0.0-0.2); #Eosinphils 1.3 10x3/uL (0.0-0.5); #Monocytes 0.8 10x3/uL (0.0-1.1); #Neutrophils 7.4 10x3/uL (1.5-8.4); %Eosinophils 10.9 % (0.0-6.0); %Monocytes 6.2 % (0.0-10.0); %Neutrophils 60.7 % (40.0-75.0); Hemoglobin 12.6 g/dL (12.0-15.5); Mean Corpuscular HGB CONC 32.1 g/dL (32.0-36.0); Mean Corpuscular Hemoglobin 25.6 pg (27.0-33.0); Mean Corpuscular Volume 79.5 fl (81.6-98.3); Mean Platelet Volume 9.7 fl (7.4-10.4); Platelet Count 408 10x3/uL (150-450); RBC Distribution Width 15.4 % (11.5-14.5); Red Blood Cell (RBC) Count 4.93 10x6/uL (3.90-5.03); White Blood Cell (WBC) Count 12.2 10x3/uL (3.5-10.5)
[2023-01-08 16:01] LABS: Anion Gap 14 mmol/L (10-20); BUN (Urea Nitrogen) 10 mg/dL (7.0-18.7); Calc. Creatinine Clearance 0 mL/min (70-130); Calcium 9.4 mg/dL (7.8-10.44); Carbon Dioxide 21 mmol/L (22-29); Chloride 107 mmol/L (98-107); Estimated GFR 78; Glucose 119 mg/dL (70-105); Potassium 3.9 mmol/L (3.5-5.1); Sodium 138 mmol/L (136-145)
[2023-01-08] MEDS ORDERED: Fentanyl 100 MCG/2 ML VIAL ONE ×2 (16:05→17:55)
[2023-01-08] MEDS ORDERED: Ondansetron PF 4 MG/2 ML Vial ONE (17:12)
== END 2023-01-08 18:05 | disposition home or self-care (01) ==
LOC: CSHERS 14:45
DX: R10.31 Right lower quadrant pain (principal); D72.829 Elevated white blood cell count, unspecified; I50.9 Heart failure, unspecified
CPT/HCPCS: 72193; 80048; 85025; 86900; 86901; 93923; 96374; 96375; 96376; J1200; J2405; J2920; J3010; Q9967; S0028

== ENCOUNTER 2023-01-29 15:13 | Emergency (ER) | payer MEDICAID ==
[2023-01-29] MEDS ORDERED: Ondansetron ODT 4 MG TAB ONE (15:48)
[2023-01-29 16:00] LABS: #Basophils 0.2 10x3/uL (0.0-0.2); #Eosinphils 0.8 10x3/uL (0.0-0.5); #Monocytes 1.1 10x3/uL (0.0-1.1); #Neutrophils 7.7 10x3/uL (1.5-8.4); %Basophils 1.2 % (0.0-2.0); %Eosinophils 6.4 % (0.0-6.0); %Lymphocytes 21.4 % (18.0-47.0); %Monocytes 8.7 % (0.0-10.0); %Neutrophils 61.9 % (40.0-75.0); Hemoglobin 13.2 g/dL (12.0-15.5); Mean Corpuscular HGB CONC 30.6 g/dL (32.0-36.0); Mean Corpuscular Hemoglobin 24.5 pg (27.0-33.0); Mean Corpuscular Volume 80.1 fl (81.6-98.3); Platelet Count 490 10x3/uL (150-450); RBC Distribution Width 17.1 % (11.5-14.5); Red Blood Cell (RBC) Count 5.39 10x6/uL (3.90-5.03); White Blood Cell (WBC) Count 12.4 10x3/uL (3.5-10.5)
[2023-01-29 16:26] LABS: ALT (SGPT) 25 U/L (8-55); AST (SGOT) 24 U/L (5-34); Albumin 4.2 g/dL (3.5-5.0); Alkaline Phosphatase 54 U/L (40-110); Anion Gap 14 mmol/L (10-20); BUN (Urea Nitrogen) 14 mg/dL (7.0-18.7); Bilirubin, Total 0.5 mg/dL (0.2-1.2); Calc. Creatinine Clearance 0 mL/min (70-130); Calcium 9.6 mg/dL (7.8-10.44); Carbon Dioxide 22 mmol/L (22-29); Chloride 102 mmol/L (98-107); Estimated GFR 78; Globulin 3.4 g/dL (2.4-3.5); Glucose 104 mg/dL (70-105); Lipase 12 U/L (8-78); Potassium 3.9 mmol/L (3.5-5.1); Protein, Total 7.6 g/dL (6.0-8.3); Sodium 134 mmol/L (136-145)
[2023-01-29] MEDS ORDERED: Acetaminophen 500 MG TAB ONE (16:51)
== END 2023-01-29 17:20 | disposition home or self-care (01) ==
LOC: CSHERS 15:13
DX: R07.2 Precordial pain (principal); R06.02 Shortness of breath; I25.10 Atherosclerotic heart disease of native coronary artery without angina pectoris; I25.2 Old myocardial infarction; I50.9 Heart failure, unspecified; M79.7 Fibromyalgia; Z86.711 Personal history of pulmonary embolism; Z86.718 Personal history of other venous thrombosis and embolism
CPT/HCPCS: 36415; 71045; 80053; 83690; 84484; 85025; 85379; 93005; Q0162

== ENCOUNTER 2023-02-12 13:36 | Emergency (ER) | payer MEDICAID ==
[2023-02-12 14:43] LABS: #Basophils 0.2 10x3/uL (0.0-0.2); #Eosinphils 1.3 10x3/uL (0.0-0.5); #Monocytes 1.1 10x3/uL (0.0-1.1); #Neutrophils 9.2 10x3/uL (1.5-8.4); %Eosinophils 8.5 % (0.0-6.0); %Lymphocytes 19.7 % (18.0-47.0); %Monocytes 7.5 % (0.0-10.0); %Neutrophils 62.6 % (40.0-75.0); Hemoglobin 13.9 g/dL (12.0-15.5); Mean Corpuscular HGB CONC 32.1 g/dL (32.0-36.0); Mean Corpuscular Hemoglobin 25.8 pg (27.0-33.0); Mean Corpuscular Volume 80.3 fl (81.6-98.3); Mean Platelet Volume 10.1 fl (7.4-10.4); Platelet Count 499 10x3/uL (150-450); RBC Distribution Width 17.2 % (11.5-14.5); Red Blood Cell (RBC) Count 5.39 10x6/uL (3.90-5.03); White Blood Cell (WBC) Count 14.7 10x3/uL (3.5-10.5)
[2023-02-12 15:06] LABS: ALT (SGPT) 20 U/L (8-55); AST (SGOT) 15 U/L (5-34); Albumin 4.2 g/dL (3.5-5.0); Alkaline Phosphatase 72 U/L (40-110); Anion Gap 18 mmol/L (10-20); BUN (Urea Nitrogen) 14 mg/dL (7.0-18.7); Bilirubin, Total 0.1 mg/dL (0.2-1.2); Calc. Creatinine Clearance 0 mL/min (70-130); Calcium 9.4 mg/dL (7.8-10.44); Carbon Dioxide 21 mmol/L (22-29); Chloride 104 mmol/L (98-107); Estimated GFR 91; Globulin 3.5 g/dL (2.4-3.5); Glucose 115 mg/dL (70-105); Lipase 25 U/L (8-78); Potassium 4.3 mmol/L (3.5-5.1); Protein, Total 7.7 g/dL (6.0-8.3); Sodium 139 mmol/L (136-145)
== END 2023-02-12 16:31 | disposition home or self-care (01) ==
LOC: CSHERS 13:36
DX: R00.2 Palpitations (principal); R07.9 Chest pain, unspecified; D72.829 Elevated white blood cell count, unspecified; I25.10 Atherosclerotic heart disease of native coronary artery without angina pectoris; I50.9 Heart failure, unspecified
CPT/HCPCS: 71045; 80053; 83690; 84484; 85025; 93005

== ENCOUNTER 2023-03-10 16:53 | Emergency (ER) | payer MEDICAID ==
[2023-03-10] MEDS ORDERED: Morphine 4 MG/ML VIAL ONE ×2 (17:45→21:34)
[2023-03-10] MEDS ORDERED: Ondansetron PF 4 MG/2 ML Vial ONE (17:45)
[2023-03-10] MEDS ORDERED: methylPREDNISolone Sod Succ 40 MG VIAL ONE (18:08)
[2023-03-10] MEDS ORDERED: diphenhydrAMINE 50 MG/ML VIAL ONE (18:08)
[2023-03-10] MEDS ORDERED: Famotidine/PF 20 mg/2ml Vial ONE (18:08)
[2023-03-10 18:45] LABS: Hemoglobin 13.6 g/dL (12.0-15.5); Mean Corpuscular Hemoglobin 25.6 pg (27.0-33.0); Mean Corpuscular Volume 85.3 fl (81.6-98.3); Mean Platelet Volume 9.3 fl (7.4-10.4); RBC Distribution Width 16.6 % (11.5-14.5); Red Blood Cell (RBC) Count 5.31 10x6/uL (3.90-5.03); White Blood Cell (WBC) Count 13.9 10x3/uL (3.5-10.5)
[2023-03-10 18:46] LABS: Platelet Count 410 10x3/uL (150-450)
[2023-03-10 18:48] LABS: ALT (SGPT) 35 U/L (8-55); AST (SGOT) 38 U/L (5-34); Albumin 4.2 g/dL (3.5-5.0); Alkaline Phosphatase 61 U/L (40-110); Anion Gap 15 mmol/L (10-20); BUN (Urea Nitrogen) 11 mg/dL (7.0-18.7); Bilirubin, Total 0.3 mg/dL (0.2-1.2); Calc. Creatinine Clearance 0 mL/min (70-130); Calcium 9.9 mg/dL (7.8-10.44); Carbon Dioxide 19 mmol/L (22-29); Chloride 105 mmol/L (98-107); Estimated GFR 88; Globulin 4.1 g/dL (2.4-3.5); Glucose 92 mg/dL (70-105); Protein, Total 8.3 g/dL (6.0-8.3); Sodium 134 mmol/L (136-145)
[2023-03-10 19:32] LABS: MDiff Complete? YES
[2023-03-10 19:36] LABS: Eosinophils 6 % (0-10); Lymphocytes 29 % (21-51); Monocytes 2 % (0-10); Neutrophil 63 % (42-75)
[2023-03-10 19:40] LABS: Anisocytosis SLIGHT = 6-15 cells (100X) (0-5/hpf); Poikilocytosis SLIGHT = 6-15 cells (100X) (0-5/hpf)
[2023-03-10 19:41] LABS: Platelet Morphology Comment Appears Adequate
== END 2023-03-10 21:53 | disposition home or self-care (01) ==
LOC: CSHERS 16:53
DX: R10.30 Lower abdominal pain, unspecified (principal); I25.10 Atherosclerotic heart disease of native coronary artery without angina pectoris; I50.9 Heart failure, unspecified
CPT/HCPCS: 36415; 74177; 80053; 85025; 96374; 96375; 96376; J1200; J2270; J2405; J2920; Q9967; S0028

== ENCOUNTER 2023-03-20 19:56 | Emergency (ER) | payer MEDICAID ==
[2023-03-20 21:31] LABS: #Basophils 0.1 10x3/uL (0.0-0.2); #Eosinphils 0.9 10x3/uL (0.0-0.5); #Monocytes 1.2 10x3/uL (0.0-1.1); #Neutrophils 9.2 10x3/uL (1.5-8.4); %Basophils 0.7 % (0.0-2.0); %Eosinophils 5.9 % (0.0-6.0); %Lymphocytes 24.9 % (18.0-47.0); %Monocytes 7.9 % (0.0-10.0); %Neutrophils 60.2 % (40.0-75.0); Hemoglobin 12.8 g/dL (12.0-15.5); Mean Corpuscular HGB CONC 31.3 g/dL (32.0-36.0); Mean Corpuscular Hemoglobin 25.6 pg (27.0-33.0); Mean Corpuscular Volume 81.8 fl (81.6-98.3); Mean Platelet Volume 9.9 fl (7.4-10.4); Platelet Count 426 10x3/uL (150-450); RBC Distribution Width 15.9 % (11.5-14.5); White Blood Cell (WBC) Count 15.3 10x3/uL (3.5-10.5)
[2023-03-20 21:48] LABS: ALT (SGPT) 20 U/L (8-55); AST (SGOT) 17 U/L (5-34); Albumin 3.9 g/dL (3.5-5.0); Alkaline Phosphatase 55 U/L (40-110); Anion Gap 17 mmol/L (10-20); BUN (Urea Nitrogen) 11 mg/dL (7.0-18.7); Bilirubin, Total 0.2 mg/dL (0.2-1.2); Calc. Creatinine Clearance 0 mL/min (70-130); Carbon Dioxide 22 mmol/L (22-29); Chloride 104 mmol/L (98-107); Estimated GFR 73; Globulin 2.7 g/dL (2.4-3.5); Glucose 90 mg/dL (70-105); Magnesium 1.8 mg/dL (1.6-2.6); Potassium 4.5 mmol/L (3.5-5.1); Protein, Total 6.6 g/dL (6.0-8.3); Sodium 138 mmol/L (136-145)
[2023-03-20] MEDS ORDERED: Gabapentin 300 MG CAP ONE ×2 (22:08→22:18)
== END 2023-03-20 22:30 | disposition home or self-care (01) ==
LOC: CSHERS 19:56
DX: R00.2 Palpitations (principal); R07.9 Chest pain, unspecified; I25.10 Atherosclerotic heart disease of native coronary artery without angina pectoris; I25.2 Old myocardial infarction; I50.9 Heart failure, unspecified; Z79.899 Other long term (current) drug therapy; Z79.82 Long term (current) use of aspirin; Z79.84 Long term (current) use of oral hypoglycemic drugs
CPT/HCPCS: 71045; 80053; 83735; 83880; 84484; 85025; 93005

== ENCOUNTER 2023-03-26 18:25 | Emergency (ER) | payer MEDICAID ==
[2023-03-26 22:27] LABS: #Basophils 0.2 10x3/uL (0.0-0.2); #Eosinphils 1.1 10x3/uL (0.0-0.5); %Basophils 1.1 % (0.0-2.0); %Eosinophils 8.2 % (0.0-6.0); %Lymphocytes 23.2 % (18.0-47.0); %Monocytes 7.7 % (0.0-10.0); %Neutrophils 59.4 % (40.0-75.0); Hemoglobin 12.9 g/dL (12.0-15.5); Mean Corpuscular HGB CONC 31.6 g/dL (32.0-36.0); Mean Corpuscular Hemoglobin 25.6 pg (27.0-33.0); Mean Corpuscular Volume 81.1 fl (81.6-98.3); Mean Platelet Volume 9.9 fl (7.4-10.4); Platelet Count 463 10x3/uL (150-450); RBC Distribution Width 15.7 % (11.5-14.5); Red Blood Cell (RBC) Count 5.03 10x6/uL (3.90-5.03); White Blood Cell (WBC) Count 13.5 10x3/uL (3.5-10.5)
[2023-03-26] MEDS ORDERED: methylPREDNISolone Sod Succ 40 MG VIAL ONE (22:28)
[2023-03-26] MEDS ORDERED: diphenhydrAMINE 50 MG/ML VIAL ONE (22:28)
[2023-03-26] MEDS ORDERED: Morphine 4 MG/ML VIAL ONE (22:28)
[2023-03-26] MEDS ORDERED: Famotidine/PF 20 mg/2ml Vial ONE (22:29)
[2023-03-26 22:35] LABS: BHCG - Serum Negative (NEGATIVE); Pregs Control Background? CLEAR/WHITE (CLR/WHITE); Pregs Control Bar Appear? YES (CONTROL BAR)
[2023-03-26 22:42] LABS: ALT (SGPT) 39 U/L (8-55); AST (SGOT) 34 U/L (5-34); Albumin 4.3 g/dL (3.5-5.0); Alkaline Phosphatase 56 U/L (40-110); Anion Gap 15 mmol/L (10-20); BUN (Urea Nitrogen) 10 mg/dL (7.0-18.7); Bilirubin, Total 0.2 mg/dL (0.2-1.2); Calc. Creatinine Clearance 0 mL/min (70-130); Calcium 9.8 mg/dL (7.8-10.44); Carbon Dioxide 22 mmol/L (22-29); Chloride 105 mmol/L (98-107); Estimated GFR 91; Globulin 3.6 g/dL (2.4-3.5); Glucose 96 mg/dL (70-105); Lipase 15 U/L (8-78); Potassium 4.2 mmol/L (3.5-5.1); Protein, Total 7.9 g/dL (6.0-8.3); Sodium 138 mmol/L (136-145)
[2023-03-26 23:05] LABS: Bilirubin Neg (Negative); Blood, Urine Negative (Negative); Clarity Slightly Cloudy (Clear); Glucose, Urine (Dipstick) Normal (Negative); Ketone, Urine Negative (Negative); Leukocyte 500 (Negative); Nitrite Negative (Negative); Protein, Urine (Dipstick) 15 mg/dl (Neg-Trace); Specific Gravity, Urine 1.025 (1.005-1.030); Urobilinogen Normal mg/dL (Less than 2)
[2023-03-26 23:24] LABS: Bacteria/HPF 1+ HPF (None Seen); RBC/HPF None Seen HPF (0-3); Squamous Epithelial 0-3 HPF (0-3)
[2023-03-27] MEDS ORDERED: cefTRIAXone (ROCEPHIN) 2 GM VIAL ONE (00:45)
[2023-03-27] MEDS ORDERED: Morphine 4 MG/ML VIAL ONE ×2 (01:28→02:37)
== END 2023-03-27 02:15 | disposition home or self-care (01) ==
LOC: CSHERS 18:25
DX: N39.0 Urinary tract infection, site not specified (principal); D72.829 Elevated white blood cell count, unspecified; I25.10 Atherosclerotic heart disease of native coronary artery without angina pectoris
CPT/HCPCS: 74177; 80053; 81003; 81015; 83605; 83690; 84703; 85025; 96374; 96375; 96376; J0696; J1200; J2270; J2920; Q9967; S0028

== ENCOUNTER 2023-07-19 15:34 | Emergency (ER) | payer MEDICAID ==
[2023-07-19] MEDS ORDERED: Ondansetron PF 4 MG/2 ML Vial ONE (20:49)
[2023-07-19] MEDS ORDERED: fentaNYL 50 mcg/mL 1 mL Vial ONE (20:50)
[2023-07-19 21:18] LABS: #Basophils 0.1 10x3/uL (0.0-0.2); #Eosinphils 0.7 10x3/uL (0.0-0.5); #Monocytes 0.8 10x3/uL (0.0-1.1); #Neutrophils 5.1 10x3/uL (1.5-8.4); %Basophils 1.3 % (0.0-2.0); %Eosinophils 7.3 % (0.0-6.0); %Monocytes 8.2 % (0.0-10.0); %Neutrophils 50.9 % (40.0-75.0); Hematocrit 40.2 % (34.9-44.5); Hemoglobin 12.9 g/dL (12.0-15.5); Mean Corpuscular HGB CONC 32.1 g/dL (32.0-36.0); Mean Corpuscular Volume 78.1 fl (81.6-98.3); Mean Platelet Volume 9.3 fl (7.4-10.4); Platelet Count 284 10x3/uL (150-450); RBC Distribution Width 14.7 % (11.5-14.5); Red Blood Cell (RBC) Count 5.15 10x6/uL (3.90-5.03)
[2023-07-19 21:23] LABS: BHCG - Serum Negative (NEGATIVE); Pregs Control Background? CLEAR/WHITE (CLR/WHITE); Pregs Control Bar Appear? YES (CONTROL BAR)
[2023-07-19 21:30] LABS: ALT (SGPT) 41 U/L (8-55); AST (SGOT) 39 U/L (5-34); Albumin 3.9 g/dL (3.5-5.0); Alkaline Phosphatase 51 U/L (40-110); Anion Gap 18 mmol/L (10-20); BUN (Urea Nitrogen) 9 mg/dL (7.0-18.7); Bilirubin, Total 0.5 mg/dL (0.2-1.2); Calc. Creatinine Clearance 0 mL/min (70-130); Calcium 9.2 mg/dL (7.8-10.44); Carbon Dioxide 19 mmol/L (22-29); Chloride 103 mmol/L (98-107); Estimated GFR 100; Globulin 3.3 g/dL (2.4-3.5); Glucose 91 mg/dL (70-105); Lipase 18 U/L (8-78); Magnesium 1.7 mg/dL (1.6-2.6); Potassium 4.2 mmol/L (3.5-5.1); Protein, Total 7.2 g/dL (6.0-8.3); Sodium 136 mmol/L (136-145)
[2023-07-19] MEDS ORDERED: Ondansetron ODT 4 MG TAB ONE (21:49)
[2023-07-19] MEDS ORDERED: Ketorolac Tromethamine 30 MG/ML VIAL ONE (21:50)
[2023-07-19] MEDS ORDERED: Morphine 4 MG/ML VIAL ONE (22:23)
== END 2023-07-19 22:52 | disposition home or self-care (01) ==
LOC: CSHERS 15:34
DX: R10.11 Right upper quadrant pain (principal); I50.9 Heart failure, unspecified
CPT/HCPCS: 36415; 76705; 80053; 83605; 83690; 83735; 84703; 85025; 96372; J1885; J2270; J2405; J3010; Q0162

== ENCOUNTER 2024-01-31 18:00 | Inpatient (IN) | payer MEDICAID, SELFPAY ==
[2024-01-31 18:29] LABS: Bilirubin Neg (Negative); Blood, Urine 10 (Negative); Clarity Clear (Clear); Glucose, Urine (Dipstick) Normal (Negative); Ketone, Urine Negative (Negative); Leukocyte 500 (Negative); Nitrite Negative (Negative); Protein, Urine (Dipstick) 15 mg/dl (Neg-Trace); Urobilinogen Normal mg/dL (Less than 2)
[2024-01-31 18:41] LABS: Bacteria/HPF 2+ HPF (None Seen); CAUTI Indications for Culture Pelvic or flank pain; Mucous/LPF 1+ LPF (<2+); RBC/HPF 0-3 HPF (0-3); Urine Culture Reflex Yes Yes
[2024-01-31 19:46] LABS: Pregnancy Test - Urine (BHCG) Negative (Negative); Pregu Control Background? CLEAR/WHITE (CLR/WHITE); Pregu Control Bar Appear? YES (CONTROL BAR)
[2024-01-31] MEDS ORDERED: Morphine 4 MG/ML VIAL ONE (20:02)
[2024-01-31] MEDS ORDERED: Ondansetron PF 4 MG/2 ML Vial ONE (20:03)
[2024-01-31 20:20] LABS: Hematocrit 40.2 % (34.9-44.5); Hemoglobin 12.5 g/dL (12.0-15.5); MDiff Complete? YES; Mean Corpuscular HGB CONC 31.1 g/dL (32.0-36.0); Mean Corpuscular Hemoglobin 25.5 pg (27.0-33.0); Mean Corpuscular Volume 81.9 fl (81.6-98.3); Mean Platelet Volume 9.3 fl (7.4-10.4); Platelet Count 463 10x3/uL (150-450); RBC Distribution Width 15.8 % (11.5-14.5); Red Blood Cell (RBC) Count 4.91 10x6/uL (3.90-5.03); White Blood Cell (WBC) Count 13.9 10x3/uL (3.5-10.5)
[2024-01-31 20:22] LABS: ALT (SGPT) 32 U/L (8-55); AST (SGOT) 28 U/L (5-34); Albumin 4.1 g/dL (3.5-5.0); Alkaline Phosphatase 47 U/L (40-110); Anion Gap 13 mmol/L (10-20); BUN (Urea Nitrogen) 13 mg/dL (7.0-18.7); Bilirubin, Total 0.3 mg/dL (0.2-1.2); Calc. Creatinine Clearance 0 mL/min (70-130); Calcium 8.8 mg/dL (7.8-10.44); Carbon Dioxide 21 mmol/L (22-29); Chloride 107 mmol/L (98-107); Estimated GFR 84; Globulin 2.8 g/dL (2.4-3.5); Glucose 83 mg/dL (70-105); Potassium 4.2 mmol/L (3.5-5.1); Protein, Total 6.9 g/dL (6.0-8.3); Sodium 137 mmol/L (136-145)
[2024-01-31 20:48] LABS: Band 3 % (5-11); Eosinophils 3 % (0-10); Lymphocytes 24 % (21-51); Monocytes 9 % (0-10); Neutrophil 50 % (42-75); Reactive Lymphocytes 10 % (0-10)
[2024-01-31 20:55] LABS: Anisocytosis SLIGHT = 6-15 cells (100X) (0-5/hpf); Elliptocytes SLIGHT = 2-5 cells (100X) (0-1/hpf); Poikilocytosis SLIGHT = 6-15 cells (100X) (0-5/hpf)
[2024-01-31 20:56] LABS: Microcytosis MODERATE=15-30 cells (100X) (0-5/hpf); Ovalocytes SLIGHT = 2-5 cells (100X) (0-1/hpf); Platelet Adequacy Comment Appears Increased
[2024-01-31] MEDS ORDERED: HYDROmorphone 0.5 MG/0.5 ML SYRINGE ONE (20:58)
[2024-01-31] MEDS ORDERED: cefTRIAXone (ROCEPHIN) 2 GM VIAL ONE (21:12)
[2024-01-31] MEDS ORDERED: Senokot S 8.6-50 MG TAB PO PRN (22:30)
[2024-01-31] MEDS ORDERED: Dicyclomine 10 MG CAP PO PRN (22:41)
[2024-01-31] MEDS ORDERED: Ventolin HFA Inhaler 60 PUFF INHALER INH PRN (22:41)
[2024-01-31] MEDS ORDERED: Lorazepam 1 MG TAB PO PRN (22:41)
[2024-01-31] MEDS ORDERED: Bumetanide 1 MG TAB PO SCH (22:45)
[2024-01-31 23:56] VITALS: BMI 56.7
[2024-02-01] MEDS: Sodium Chloride 0.9% 1,000 ML IV SCH (00:16)
[2024-02-01] MEDS: Fish Oil 1,000 MG CAP PO SCH ×2 (00:17→08:29)
[2024-02-01] MEDS: Carvedilol 25 MG TAB PO SCH ×2 (00:17→08:29)
[2024-02-01] MEDS: Atorvastatin Calcium 40 MG TAB PO SCH ×2 (00:17→21:29)
[2024-02-01] MEDS: Baclofen 10 MG TAB PO SCH ×2 (00:17→08:30)
[2024-02-01] MEDS: Acetaminophen 325 MG TAB PO SCH ×2 (00:18→08:30)
[2024-02-01] MEDS: Gabapentin 400 MG CAP PO SCH ×2 (00:19→05:08)
[2024-02-01] MEDS: Enoxaparin 120 MG/0.8 ML SYRINGE SC SCH ×2 (00:20→08:30)
[2024-02-01] MEDS: oxyCODONE 5 MG TAB PO SCH ×2 (00:34→08:31)
[2024-02-01] MEDS: Aripiprazole 10 MG TAB PO SCH ×2 (00:35→09:13)
[2024-02-01] MEDS: Sacubitril 49 MG/Valsartan 51 MG TABLET PO SCH ×2 (00:35→09:13)
[2024-02-01] MEDS: Prazosin HCl 1 MG CAP PO SCH ×2 (00:35→21:32)
[2024-02-01] MEDS: oxyCODONE/Acetaminophen 5 mg/325 mg Tablet PO SCH (00:36)
[2024-02-01 03:46] LABS: Hematocrit 37.2 % (34.9-44.5); Hemoglobin 11.9 g/dL (12.0-15.5); Mean Corpuscular Hemoglobin 26.2 pg (27.0-33.0); Mean Corpuscular Volume 81.9 fl (81.6-98.3); Mean Platelet Volume 9.9 fl (7.4-10.4); Platelet Count 451 10x3/uL (150-450); RBC Distribution Width 15.8 % (11.5-14.5); Red Blood Cell (RBC) Count 4.54 10x6/uL (3.90-5.03)
[2024-02-01 04:02] LABS: Anion Gap 11 mmol/L (10-20); BUN (Urea Nitrogen) 12 mg/dL (7.0-18.7); Calc. Creatinine Clearance 189 mL/min (70-130); Calcium 8.6 mg/dL (7.8-10.44); Carbon Dioxide 21 mmol/L (22-29); Chloride 107 mmol/L (98-107); Estimated GFR 85; Glucose 110 mg/dL (70-105); Potassium 3.5 mmol/L (3.5-5.1); Sodium 135 mmol/L (136-145)
[2024-02-01 04:14] LABS: MDiff Complete? YES; Platelet Adequacy Comment Appears Increased
[2024-02-01 04:19] LABS: Anisocytosis SLIGHT = 6-15 cells (100X) (0-5/hpf); Elliptocytes SLIGHT = 2-5 cells (100X) (0-1/hpf); Hypochromia SLIGHT = 6-15 cells (100X) (0-5/hpf); Microcytosis SLIGHT = 6-15 cells (100X) (0-5/hpf)
[2024-02-01 04:21] LABS: Band 7 % (5-11); Eosinophils 7 % (0-10); Lymphocytes 34 % (21-51); Monocytes 8 % (0-10); Neutrophil 41 % (42-75); Reactive Lymphocytes 3 % (0-10)
[2024-02-01] MEDS: Morphine 4 MG/ML VIAL SLOW IVP PRN ×2 (05:05→18:55)
[2024-02-01] MEDS: Aspirin 81 mg Enteric Coated Tablet PO SCH (08:30)
[2024-02-01] MEDS: Spironolactone 25 MG TAB PO SCH (08:30)
[2024-02-01] MEDS: FLUoxetine HCl 20 MG CAP PO SCH (08:30)
[2024-02-01] MEDS: Loratadine 10 MG TAB PO SCH (08:32)
[2024-02-01] MEDS: FLU VACC QS2023-24(6MOS UP)/PF 60 MCG/0.5 ML SYRINGE IM ONE (08:33)
[2024-02-01] MEDS ORDERED: ACETAMINOPHEN PO SCH (09:00)
[2024-02-01] MEDS ORDERED: Enoxaparin 40 MG (0.4 mL) SYRINGE SC SCH (09:00)
[2024-02-01] MEDS ORDERED: [UNRECOGNIZED DRUG - OTHER] PO SCH (09:00)
[2024-02-01] MEDS ORDERED: OXYCODONE HCL PO SCH (09:00)
[2024-02-01] MEDS: Bumetanide 1 MG TAB PO SCH ×2 (09:12→14:45)
[2024-02-01] MEDS: Empagliflozin 10 MG TAB PO SCH (09:12)
[2024-02-01] MEDS: Morphine 4 MG/ML VIAL SLOW IVP SCH (14:45)
[2024-02-01] MEDS: Ondansetron ODT 4 MG TAB PO PRN (18:59)
[2024-02-01] MEDS: cefTRIAXone\\ROCEPHIN 2 GM in Sodium Chloride 0.9% 100 ML IVPB SCH (21:37)
[2024-02-02] MEDS: Ondansetron PF 4 MG/2 ML Vial IVP PRN (06:41)
[2024-02-02] MEDS: Metoclopramide HCl 10 MG (2 mL) VIAL IVP SCH (08:51)
[2024-02-02] MEDS: Morphine 4 MG/ML VIAL SLOW IVP PRN (08:56)
[2024-02-02] MEDS: Promethazine HCl 12.5 MG in Sodium Chloride 0.9% 50 ML IVPB PRN (11:20)
[2024-02-02] MEDS: oxyCODONE 5 MG TAB PO SCH (23:49)
[2024-02-02] MEDS: Acetaminophen 325 MG TAB PO SCH (23:50)
[2024-02-03 05:25] LABS: Hematocrit 39.1 % (34.9-44.5); Hemoglobin 12.1 g/dL (12.0-15.5); Mean Corpuscular HGB CONC 30.9 g/dL (32.0-36.0); Mean Corpuscular Hemoglobin 25.4 pg (27.0-33.0); Mean Platelet Volume 9.5 fl (7.4-10.4); Platelet Count 467 10x3/uL (150-450); RBC Distribution Width 15.9 % (11.5-14.5); Red Blood Cell (RBC) Count 4.77 10x6/uL (3.90-5.03); White Blood Cell (WBC) Count 11.9 10x3/uL (3.5-10.5)
[2024-02-03 05:26] LABS: MDiff Complete? YES
[2024-02-03 05:31] LABS: Anion Gap 14 mmol/L (10-20); BUN (Urea Nitrogen) 18 mg/dL (7.0-18.7); Calc. Creatinine Clearance 98 mL/min (70-130); Calcium 8.8 mg/dL (7.8-10.44); Carbon Dioxide 21 mmol/L (22-29); Chloride 105 mmol/L (98-107); Estimated GFR 39; Glucose 101 mg/dL (70-105); Potassium 3.7 mmol/L (3.5-5.1); Sodium 136 mmol/L (136-145)
[2024-02-03 07:34] LABS: Neutrophil 42 % (42-75); Reactive Lymphocytes 9 % (0-10)
[2024-02-03 07:35] LABS: Eosinophils 11 % (0-10); Lymphocytes 30 % (21-51); Monocytes 8 % (0-10)
[2024-02-03 07:40] LABS: Anisocytosis SLIGHT = 6-15 cells (100X) (0-5/hpf); Burr Cells SLIGHT = 2-5 cells (100X) (0-1/hpf); Hypochromia SLIGHT = 6-15 cells (100X) (0-5/hpf); Microcytosis SLIGHT = 6-15 cells (100X) (0-5/hpf)
[2024-02-03] MEDS ORDERED: Fenofibrate Nanocrystallized 145 MG TAB PO SCH (09:00)
[2024-02-03] MEDS ORDERED: HYDROcodone/Acetaminophen 10/325 mg Tablet PO PRN (10:49)
[2024-02-03] MEDS: oxyCODONE 5 MG TAB PO SCH (12:53)
[2024-02-03] MEDS: Acetaminophen 325 MG TAB PO SCH (12:54)
[2024-02-03] MEDS: Aripiprazole 10 MG TAB PO SCH (22:04)
[2024-02-04 05:53] LABS: #Basophils 0.1 10x3/uL (0.0-0.2); #Eosinphils 1.6 10x3/uL (0.0-0.5); #Monocytes 1.2 10x3/uL (0.0-1.1); #Neutrophils 6.1 10x3/uL (1.5-8.4); %Basophils 0.9 % (0.0-2.0); %Eosinophils 13.9 % (0.0-6.0); %Lymphocytes 23.5 % (18.0-47.0); %Monocytes 9.9 % (0.0-10.0); %Neutrophils 51.5 % (40.0-75.0); Hemoglobin 11.2 g/dL (12.0-15.5); Mean Corpuscular HGB CONC 31.1 g/dL (32.0-36.0); Mean Corpuscular Hemoglobin 25.3 pg (27.0-33.0); Mean Corpuscular Volume 81.3 fl (81.6-98.3); Mean Platelet Volume 9.6 fl (7.4-10.4); Platelet Count 440 10x3/uL (150-450); RBC Distribution Width 15.9 % (11.5-14.5); Red Blood Cell (RBC) Count 4.43 10x6/uL (3.90-5.03); White Blood Cell (WBC) Count 11.7 10x3/uL (3.5-10.5)
[2024-02-04 06:00] LABS: Anion Gap 14 mmol/L (10-20); BUN (Urea Nitrogen) 17 mg/dL (7.0-18.7); Calc. Creatinine Clearance 109 mL/min (70-130); Calcium 8.8 mg/dL (7.8-10.44); Carbon Dioxide 20 mmol/L (22-29); Chloride 107 mmol/L (98-107); Estimated GFR 44; Glucose 105 mg/dL (70-105); Potassium 3.9 mmol/L (3.5-5.1); Sodium 137 mmol/L (136-145)
[2024-02-04] MEDS: Spironolactone 25 MG TAB PO SCH (08:56)
[2024-02-04] MEDS: Sodium Chloride 0.9% 1,000 ML IV SCH (10:37)
[2024-02-04 15:27] VITALS: BP 136/59; TEMP 97.9
[2024-02-06 18:14] LABS: Adenovirus F 40-41 Not Detected (Not Detected); Astrovirus Not Detected (Not Detected); C. difficile toxin A+B Not Detected (Not Detected); Campylobacter by PCR Not Detected (Not Detected); Cryptosporidium Not Detected (Not Detected); Cyclospora cayetanensis Not Detected (Not Detected); Entamoeba histolytica Not Detected (Not Detected); Enteroaggregative E. coli Not Detected (Not Detected); Enteropathogenic E. coli Not Detected (Not Detected); Enterotoxigenic E. coli Not Detected (Not Detected); Giardia lamblia Not Detected (Not Detected); Norovirus GI-GII Not Detected (Not Detected); Plesiomonas shigelloides Not Detected (Not Detected); Rotavirus A Not Detected (Not Detected); Salmonella Not Detected (Not Detected); Sapovirus Not Detected (Not Detected); Shiga-toxin-producing E coli Not Detected (Not Detected); Shigella/Enteroinvasive E coli Not Detected (Not Detected); Vibrio Not Detected (Not Detected); Vibrio cholerae Not Detected (Not Detected); Yersinia enterocolitica Not Detected (Not Detected)
[2024-02-08 11:17] LABS: Norovirus GI Negative (Negative); Norovirus GII Negative (Negative)
== END 2024-02-04 16:00 | disposition home or self-care (01) | DRG 690 ==
LOC: CSHERS 18:00 → CSHTELE 21:52 → OBSVTOIN 02-02 13:42
PROVIDERS: ADMIT Family Medicine; ATTEND Internal Medicine
DX: N10 Acute pyelonephritis (principal); D68.61 Antiphospholipid syndrome; I50.22 Chronic systolic (congestive) heart failure; Z68.43 Body mass index [BMI] 50.0-59.9, adult; E87.1 Hypo-osmolality and hyponatremia; F32.A Depression, unspecified; F41.1 Generalized anxiety disorder; N17.9 Acute kidney failure, unspecified; E66.01 Morbid (severe) obesity due to excess calories; M32.9 Systemic lupus erythematosus, unspecified; I25.2 Old myocardial infarction; Z86.718 Personal history of other venous thrombosis and embolism; Z86.711 Personal history of pulmonary embolism; Z79.899 Other long term (current) drug therapy; Z88.8 Allergy status to other drugs, medicaments and biological substances; Z88.0 Allergy status to penicillin; Z91.040 Latex allergy status; Z91.041 Radiographic dye allergy status; Z88.5 Allergy status to narcotic agent; Z91.018 Allergy to other foods; Z79.51 Long term (current) use of inhaled steroids; Z90.89 Acquired absence of other organs; Z98.890 Other specified postprocedural states; Z90.49 Acquired absence of other specified parts of digestive tract; Z82.49 Family history of ischemic heart disease and other diseases of the circulatory system
CPT/HCPCS: 36415; 74176; 80048; 80053; 81001; 81025; 83605; 83630; 83735; 85025; 87086; 87324; 87449; 87507; 87798; 96365; 96372; 96375; 96376; G0378; J0696; J1170; J1650; J2270; J2405; J2550; J3490; J7050; Q0162

== ENCOUNTER 2024-03-25 14:02 | Emergency (ER) | payer BC, MEDICAID ==
[2024-03-25] MEDS ORDERED: Ondansetron PF 4 MG/2 ML Vial ONE (14:52)
[2024-03-25] MEDS ORDERED: HYDROmorphone 0.5 MG/0.5 ML SYRINGE ONE (14:52)
[2024-03-25] MEDS ORDERED: diphenhydrAMINE 50 MG/ML VIAL ONE (15:37)
[2024-03-25] MEDS ORDERED: methylPREDNISolone Sod Succ 40 MG VIAL ONE (15:38)
[2024-03-25] MEDS ORDERED: Famotidine/PF 20 mg/2ml Vial ONE (15:38)
[2024-03-25 16:25] LABS: BHCG - Serum Negative (NEGATIVE); Pregs Control Background? CLEAR/WHITE (CLR/WHITE); Pregs Control Bar Appear? YES (CONTROL BAR)
[2024-03-25 16:30] LABS: Anion Gap 12 mmol/L (10-20); BUN (Urea Nitrogen) 14 mg/dL (7.0-18.7); Calc. Creatinine Clearance 0 mL/min (70-130); Calcium 9.2 mg/dL (7.8-10.44); Carbon Dioxide 23 mmol/L (22-29); Chloride 105 mmol/L (98-107); Estimated GFR 100; Glucose 90 mg/dL (70-105); Potassium 4.4 mmol/L (3.5-5.1); Sodium 136 mmol/L (136-145)
[2024-03-25 16:33] LABS: #Basophils 0.12 10x3/uL (0.0-0.2); #Eosinphils 1.32 10x3/uL (0.0-0.5); #Monocytes 1.06 10x3/uL (0.0-1.1); %Basophils 0.9 % (0.0-2.0); %Eosinophils 9.6 % (0.0-6.0); %Lymphocytes 24.9 % (18.0-47.0); %Monocytes 7.7 % (0.0-10.0); %Neutrophils 56.5 % (40.0-75.0); Hematocrit 37.9 % (34.9-44.5); Hemoglobin 12.5 g/dL (12.0-15.5); Mean Corpuscular Hemoglobin 26.5 pg (27.0-33.0); Mean Corpuscular Volume 80.3 fl (81.6-98.3); Platelet Count 354 10x3/uL (150-450); RBC Distribution Width 14.7 % (11.5-14.5); Red Blood Cell (RBC) Count 4.72 10x6/uL (3.90-5.03); White Blood Cell (WBC) Count 13.8 10x3/uL (3.5-10.5)
[2024-03-25] MEDS ORDERED: Morphine 4 MG/ML VIAL ONE (17:16)
[2024-03-25] MEDS ORDERED: HYDROcodone/Acetaminophen 10/325 mg Tablet ONE (18:32)
== END 2024-03-25 18:40 | disposition home or self-care (01) ==
LOC: CSHERS 14:02
DX: M54.50 Low back pain, unspecified (principal); I50.9 Heart failure, unspecified
CPT/HCPCS: 36415; 72132; 80048; 84703; 85025; 96372; 96374; 96375; J1170; J1200; J2270; J2405; J2920; Q9967; S0028

== ENCOUNTER 2024-07-21 20:33 | Emergency (ER) | payer MEDICAID, OTHER ==
[2024-07-21 21:34] LABS: Bilirubin Neg (Negative); Blood, Urine Negative (Negative); Clarity Slightly Cloudy (Clear); Glucose, Urine (Dipstick) Normal (Negative); Ketone, Urine 5 mg/dL (Negative); Leukocyte 25 (Negative); Nitrite Negative (Negative); Protein, Urine (Dipstick) 15 mg/dl (Neg-Trace); Urobilinogen Normal mg/dL (Less than 2)
[2024-07-21 21:35] LABS: BHCG - Serum Negative (NEGATIVE); Pregs Control Background? CLEAR/WHITE (CLR/WHITE); Pregs Control Bar Appear? YES (CONTROL BAR)
[2024-07-21 21:36] LABS: #Basophils 0.12 10x3/uL (0.0-0.2); #Eosinphils 0.81 10x3/uL (0.0-0.5); #Monocytes 1.07 10x3/uL (0.0-1.1); #Neutrophils 7.55 10x3/uL (1.5-8.4); %Basophils 0.9 % (0.0-2.0); %Lymphocytes 28.6 % (18.0-47.0); %Neutrophils 56.1 % (40.0-75.0); Hematocrit 36.2 % (34.9-44.5); Hemoglobin 11.3 g/dL (12.0-15.5); Mean Corpuscular HGB CONC 31.2 g/dL (32.0-36.0); Mean Corpuscular Hemoglobin 25.3 pg (27.0-33.0); Mean Corpuscular Volume 81.2 fL (81.6-98.3); Platelet Count 482 10x3/uL (150-450); RBC Distribution Width 14.9 % (11.5-14.5); Red Blood Cell (RBC) Count 4.46 10x6/uL (3.90-5.03); White Blood Cell (WBC) Count 13.5 10x3/uL (3.5-10.5)
[2024-07-21 21:42] LABS: ALT (SGPT) 23 U/L (8-55); AST (SGOT) 17 U/L (5-34); Albumin 3.4 g/dL (3.5-5.0); Alkaline Phosphatase 71 U/L (40-110); Anion Gap 13 mmol/L (10-20); BUN (Urea Nitrogen) 13 mg/dL (7.0-18.7); Bilirubin, Total Less than 0.2 mg/dL (0.2-1.2); Calc. Creatinine Clearance 0 mL/min (70-130); Calcium 9.6 mg/dL (7.8-10.44); Carbon Dioxide 22 mmol/L (22-29); Chloride 106 mmol/L (98-107); Estimated GFR 91; Globulin 3.6 g/dL (2.4-3.5); Glucose 113 mg/dL (70-105); Potassium 3.6 mmol/L (3.5-5.1); Sodium 137 mmol/L (136-145)
[2024-07-21] MEDS ORDERED: Morphine 4 MG/ML VIAL ONE ×2 (21:49→23:44)
[2024-07-21] MEDS ORDERED: Ondansetron PF 4 MG/2 ML Vial ONE (21:49)
[2024-07-21 21:56] LABS: Bacteria/HPF 1+ HPF (None Seen); CAUTI Indications for Culture Pelvic or flank pain; Calcium Oxalate Crystals Rare HPF (None Seen); Mucous/LPF Rare LPF (<2+); RBC/HPF 0-3 HPF (0-3); Squamous Epithelial 0-3 HPF (0-3); WBC/HPF 0-3 HPF (0-3)
[2024-07-21 21:57] LABS: Urine Culture Reflex No No
[2024-07-22] MEDS ORDERED: Famotidine/PF 20 mg/2ml Vial ONE (00:18)
[2024-07-22] MEDS ORDERED: diphenhydrAMINE 50 MG/ML VIAL ONE ×2 (00:18→01:44)
[2024-07-22] MEDS ORDERED: methylPREDNISolone Sod Succ 40 MG VIAL ONE (00:18)
== END 2024-07-22 02:30 | disposition home or self-care (01) ==
LOC: CSHERS 20:33
DX: R10.31 Right lower quadrant pain (principal); R11.2 Nausea with vomiting, unspecified
CPT/HCPCS: 74177; 76856; 80053; 81001; 84703; 85025; 93976; 96361; 96374; 96375; 96376; J1200; J2272; J2405; J2919; J3490; Q9967

== ENCOUNTER 2024-09-06 17:34 | Emergency (ER) | payer MEDICAID ==
[2024-09-06] MEDS ORDERED: Ondansetron PF 4 MG/2 ML Vial ONE (17:56)
[2024-09-06] MEDS ORDERED: Aspirin Chewable 81 MG TAB ONE (18:27)
[2024-09-06] MEDS ORDERED: Morphine 4 MG/ML VIAL ONE ×3 (18:27→23:33)
[2024-09-06] MEDS ORDERED: Famotidine/PF 20 mg/2ml Vial ONE (18:28)
[2024-09-06 18:33] LABS: Hematocrit 37.5 % (34.9-44.5); Hemoglobin 11.8 g/dL (12.0-15.5); Mean Corpuscular HGB CONC 31.5 g/dL (32.0-36.0); Mean Corpuscular Hemoglobin 24.9 pg (27.0-33.0); Mean Corpuscular Volume 79.3 fL (81.6-98.3); Mean Platelet Volume 9.7 fL (7.4-10.4); Platelet Count 452 10x3/uL (150-450); RBC Distribution Width 15.3 % (11.5-14.5); Red Blood Cell (RBC) Count 4.73 10x6/uL (3.90-5.03); White Blood Cell (WBC) Count 20.1 10x3/uL (3.5-10.5)
[2024-09-06 18:34] LABS: BHCG - Serum Negative (NEGATIVE); Pregs Control Background? CLEAR/WHITE (CLR/WHITE); Pregs Control Bar Appear? YES (CONTROL BAR)
[2024-09-06 18:41] LABS: ALT (SGPT) 23 U/L (8-55); AST (SGOT) 20 U/L (5-34); Albumin 3.9 g/dL (3.5-5.0); Alkaline Phosphatase 49 U/L (40-110); Anion Gap 14 mmol/L (10-20); BUN (Urea Nitrogen) 11 mg/dL (7.0-18.7); Bilirubin, Total 0.2 mg/dL (0.2-1.2); Calc. Creatinine Clearance 0 mL/min (70-130); Calcium 9.5 mg/dL (7.8-10.44); Carbon Dioxide 22 mmol/L (22-29); Chloride 110 mmol/L (98-107); Estimated GFR 94; Glucose 128 mg/dL (70-105); Lipase 27 U/L (8-78); Potassium 3.6 mmol/L (3.5-5.1); Protein, Total 6.9 g/dL (6.0-8.3); Sodium 142 mmol/L (136-145)
[2024-09-06 18:47] LABS: Troponin I 0.012 ng/mL (< 0.028)
[2024-09-06 19:29] LABS: Band 1 % (5-11); Eosinophils 1 % (0-10); Monocytes 12 % (0-10)
[2024-09-06 19:31] LABS: Lymphocytes 26 % (21-51)
[2024-09-06 19:32] LABS: Neutrophil 50 % (42-75); Reactive Lymphocytes 8 % (0-10)
[2024-09-06 19:34] LABS: Anisocytosis SLIGHT = 6-15 cells (100X) (0-5/hpf); Large Platelets SLIGHT (None Seen); Microcytosis SLIGHT = 6-15 cells (100X) (0-5/hpf); Ovalocytes SLIGHT = 2-5 cells (100X) (0-1/hpf); Platelet Adequacy Comment Appears Increased
[2024-09-06 19:35] LABS: MDiff Complete? YES
[2024-09-06 19:50] LABS: Bilirubin Neg (Negative); Blood, Urine Negative (Negative); Clarity Slightly Cloudy (Clear); Glucose, Urine (Dipstick) 50 mg/dL (Negative); Ketone, Urine 5 mg/dL (Negative); Leukocyte 100 (Negative); Nitrite Negative (Negative); Protein, Urine (Dipstick) 30 mg/dl (Neg-Trace); Urobilinogen Normal mg/dL (Less than 2)
[2024-09-06 20:30] LABS: CAUTI Indications for Culture Pelvic or flank pain; WBC/HPF 0-3 HPF (0-3)
[2024-09-06 20:31] LABS: Bacteria/HPF Rare-Few HPF (None Seen); Calcium Oxalate Crystals 1+ HPF (None Seen); Mucous/LPF 2+ LPF (<2+); RBC/HPF None Seen HPF (0-3)
[2024-09-06] MEDS ORDERED: diphenhydrAMINE 50 MG/ML VIAL ONE (20:31)
[2024-09-06 20:32] LABS: Urine Culture Reflex No No
[2024-09-06] MEDS ORDERED: methylPREDNISolone Sod Succ 40 MG VIAL ONE (20:32)
[2024-09-06] MEDS ORDERED: Milk Of Magnesia 30 ML UDCUP ONE (20:43)
[2024-09-06] MEDS ORDERED: Lidocaine Viscous Sol 2% 15 ml UD Cup ONE (20:44)
[2024-09-07] MEDS ORDERED: Morphine 4 MG/ML VIAL ONE (00:49)
== END 2024-09-07 01:04 | disposition home or self-care (01) ==
LOC: CSHERS 17:34
DX: R07.2 Precordial pain (principal); R11.2 Nausea with vomiting, unspecified; I25.2 Old myocardial infarction
CPT/HCPCS: 71045; 74177; 80053; 81001; 83690; 83880; 84145; 84484; 84703; 85025; 85379; 93005; 96374; 96375; 96376; J1200; J2272; J2405; J2919; J3490; Q9967

== ENCOUNTER 2024-09-20 13:29 | Emergency (ER) | payer MEDICAID, OTHER ==
[2024-09-20] MEDS ORDERED: Morphine 4 MG/ML VIAL ONE ×2 (15:33→18:45)
[2024-09-20] MEDS ORDERED: diphenhydrAMINE 50 MG/ML VIAL ONE (15:33)
[2024-09-20] MEDS ORDERED: methylPREDNISolone Sod Succ 40 MG VIAL ONE (15:34)
[2024-09-20] MEDS ORDERED: Famotidine/PF 20 mg/2ml Vial ONE (15:34)
[2024-09-20 15:43] LABS: ALT (SGPT) 27 U/L (8-55); AST (SGOT) 25 U/L (5-34); Albumin 3.7 g/dL (3.5-5.0); Alkaline Phosphatase 62 U/L (40-110); Anion Gap 15 mmol/L (10-20); BUN (Urea Nitrogen) 9 mg/dL (7.0-18.7); Bilirubin, Total 0.3 mg/dL (0.2-1.2); Calc. Creatinine Clearance 0 mL/min (70-130); Calcium 9.9 mg/dL (7.8-10.44); Carbon Dioxide 21 mmol/L (22-29); Chloride 103 mmol/L (98-107); Estimated GFR 88; Globulin 3.9 g/dL (2.4-3.5); Glucose 81 mg/dL (70-105); Potassium 3.8 mmol/L (3.5-5.1); Protein, Total 7.6 g/dL (6.0-8.3); Sodium 135 mmol/L (136-145)
[2024-09-20 15:48] LABS: #Basophils 0.12 10x3/uL (0.0-0.2); #Eosinophils 0.34 10x3/uL (0.0-0.5); #Monocytes 1.05 10x3/uL (0.0-1.1); %Basophils 0.7 % (0.0-2.0); %Eosinophils 1.9 % (0.0-6.0); %Lymphocytes 19.7 % (18.0-47.0); %Monocytes 5.8 % (0.0-10.0); %Neutrophils 71.6 % (40.0-75.0); Hematocrit 38.4 % (34.9-44.5); Hemoglobin 11.9 g/dL (12.0-15.5); Mean Corpuscular Hemoglobin 24.5 pg (27.0-33.0); Mean Corpuscular Volume 79.2 fL (81.6-98.3); Mean Platelet Volume 10.4 fL (7.4-10.4); Platelet Count 428 10x3/uL (150-450); RBC Distribution Width 15.2 % (11.5-14.5); Red Blood Cell (RBC) Count 4.85 10x6/uL (3.90-5.03); White Blood Cell (WBC) Count 18.3 10x3/uL (3.5-10.5)
[2024-09-20 15:50] LABS: BHCG - Serum Negative (NEGATIVE); Pregs Control Background? CLEAR/WHITE (CLR/WHITE); Pregs Control Bar Appear? YES (CONTROL BAR)
[2024-09-20 16:00] LABS: Troponin I Less than 0.010 ng/mL (< 0.028)
[2024-09-20] MEDS ORDERED: Ondansetron PF 4 MG/2 ML Vial ONE (18:37)
[2024-09-20 20:42] LABS: Troponin I Less than 0.010 ng/mL (< 0.028)
[2024-09-20] MEDS ORDERED: HYDROcodone/Acetaminophen 5/325 mg Tablet ONE (20:47)
== END 2024-09-20 21:00 | disposition home or self-care (01) ==
LOC: CSHERS 13:29
DX: R07.9 Chest pain, unspecified (principal); R06.02 Shortness of breath; I50.9 Heart failure, unspecified
CPT/HCPCS: 36415; 71275; 80053; 83880; 84484; 84703; 85025; 93005; 96374; 96375; 96376; J1200; J2272; J2405; J2919; J3490

== ENCOUNTER 2024-10-21 14:06 | Emergency (ER) | payer MEDICAID ==
[2024-10-21] MEDS ORDERED: Sucralfate 1 GM/10 ML UDCUP ONE (15:11)
[2024-10-21 15:32] LABS: Hematocrit 40.1 % (34.9-44.5); Mean Corpuscular HGB CONC 32.4 g/dL (32.0-36.0); Mean Corpuscular Hemoglobin 25.1 pg (27.0-33.0); Mean Corpuscular Volume 77.4 fL (81.6-98.3); Mean Platelet Volume 9.6 fL (7.4-10.4); Platelet Count 459 10x3/uL (150-450); RBC Distribution Width 15.2 % (11.5-14.5); Red Blood Cell (RBC) Count 5.18 10x6/uL (3.90-5.03)
[2024-10-21 15:33] LABS: BHCG - Serum Negative (NEGATIVE); Pregs Control Background? CLEAR/WHITE (CLR/WHITE); Pregs Control Bar Appear? YES (CONTROL BAR)
[2024-10-21] MEDS ORDERED: fentaNYL 50 mcg/mL 1 mL Vial ONE (15:38)
[2024-10-21] MEDS ORDERED: Ondansetron PF 4 MG/2 ML Vial ONE (15:38)
[2024-10-21 15:41] LABS: ALT (SGPT) 39 U/L (8-55); AST (SGOT) 34 U/L (5-34); Albumin 3.9 g/dL (3.5-5.0); Alkaline Phosphatase 59 U/L (40-110); Anion Gap 15 mmol/L (10-20); BUN (Urea Nitrogen) 10 mg/dL (7.0-18.7); Bilirubin, Total 0.5 mg/dL (0.2-1.2); Calc. Creatinine Clearance 0 mL/min (70-130); Calcium 9.8 mg/dL (7.8-10.44); Carbon Dioxide 24 mmol/L (22-29); Chloride 101 mmol/L (98-107); Estimated GFR 91; Globulin 3.3 g/dL (2.4-3.5); Glucose 110 mg/dL (70-105); Lipase 12 U/L (8-78); Protein, Total 7.2 g/dL (6.0-8.3); Sodium 136 mmol/L (136-145)
[2024-10-21 15:43] LABS: Troponin I Less than 0.010 ng/mL (< 0.028)
[2024-10-21 15:49] LABS: MDiff Complete? YES
[2024-10-21 15:51] LABS: Eosinophils 8 % (0-10); Lymphocytes 39 % (21-51); Monocytes 11 % (0-10); Neutrophil 41 % (42-75)
[2024-10-21 15:52] LABS: Platelet Adequacy Comment Appears Adequate; RBC Morph Comment Within Normal Limits
[2024-10-21] MEDS ORDERED: Lidocaine Viscous Sol 2% 15 ml UD Cup ONE (16:06)
[2024-10-21] MEDS ORDERED: Mag-Al 1200 mg/1200 mg/30 ML UDCUP ONE (16:06)
== END 2024-10-21 16:23 | disposition home or self-care (01) ==
LOC: CSHERS 14:06
DX: K29.70 Gastritis, unspecified, without bleeding (principal)
CPT/HCPCS: 80053; 83690; 83880; 84484; 84703; 85025; 85379; 93005; 96374; 96375; J2405; J3010

== ENCOUNTER 2024-11-12 16:33 | Emergency (ER) | payer MEDICAID ==
[2024-11-12 18:01] LABS: Troponin I Less than 0.010 ng/mL (< 0.028)
[2024-11-12 18:05] LABS: Hematocrit 40.8 % (34.9-44.5); Hemoglobin 13.1 g/dL (12.0-15.5); Mean Corpuscular HGB CONC 32.1 g/dL (32.0-36.0); Mean Corpuscular Hemoglobin 25.3 pg (27.0-33.0); Mean Corpuscular Volume 78.9 fL (81.6-98.3); Mean Platelet Volume 9.9 fL (7.4-10.4); Platelet Count 446 10x3/uL (150-450); RBC Distribution Width 15.9 % (11.5-14.5); Red Blood Cell (RBC) Count 5.17 10x6/uL (3.90-5.03); White Blood Cell (WBC) Count 19.1 10x3/uL (3.5-10.5)
[2024-11-12 18:21] LABS: ALT (SGPT) 23 U/L (8-55); AST (SGOT) 24 U/L (5-34); Albumin 3.9 g/dL (3.5-5.0); Alkaline Phosphatase 55 U/L (40-110); Anion Gap 15 mmol/L (10-20); BUN (Urea Nitrogen) 13 mg/dL (7.0-18.7); Bilirubin, Total 0.3 mg/dL (0.2-1.2); Calc. Creatinine Clearance 0 mL/min (70-130); Calcium 10.1 mg/dL (7.8-10.44); Carbon Dioxide 22 mmol/L (22-29); Chloride 105 mmol/L (98-107); Estimated GFR 91; Globulin 3.8 g/dL (2.4-3.5); Glucose 91 mg/dL (70-105); Potassium 4.6 mmol/L (3.5-5.1); Protein, Total 7.7 g/dL (6.0-8.3); Sodium 137 mmol/L (136-145)
[2024-11-12 18:41] LABS: Lymphocytes 22 % (21-51)
[2024-11-12 18:42] LABS: Eosinophils 2 % (0-10); Monocytes 9 % (0-10); Neutrophil 65 % (42-75); Reactive Lymphocytes 2 % (0-10)
[2024-11-12 18:44] LABS: Anisocytosis SLIGHT = 6-15 cells (100X) (0-5/hpf); Microcytosis SLIGHT = 6-15 cells (100X) (0-5/hpf)
[2024-11-12 18:45] LABS: Platelet Adequacy Comment Appears Adequate
== END 2024-11-12 18:39 | disposition home or self-care (01) ==
LOC: CSHERS 16:33
DX: R07.9 Chest pain, unspecified (principal); I50.9 Heart failure, unspecified; I25.2 Old myocardial infarction; Z79.82 Long term (current) use of aspirin; Z86.711 Personal history of pulmonary embolism
CPT/HCPCS: 36415; 71045; 80053; 84484; 85025; 85379; 93005; 93010

== ENCOUNTER 2024-12-11 17:27 | Emergency (ER) | payer MEDICAID ==
[2024-12-11 19:03] LABS: #Basophils 0.14 10x3/uL (0.0-0.2); #Monocytes 0.93 10x3/uL (0.0-1.1); #Neutrophils 6.17 10x3/uL (1.5-8.4); %Basophils 1.2 % (0.0-2.0); %Eosinophils 5.1 % (0.0-6.0); %Monocytes 7.9 % (0.0-10.0); %Neutrophils 52.5 % (40.0-75.0); Hematocrit 45.2 % (34.9-44.5); Hemoglobin 14.5 g/dL (12.0-15.5); Mean Corpuscular HGB CONC 32.1 g/dL (32.0-36.0); Mean Corpuscular Hemoglobin 25.7 pg (27.0-33.0); Mean Platelet Volume 10.1 fL (7.4-10.4); Platelet Count 453 10x3/uL (150-450); RBC Distribution Width 16.9 % (11.5-14.5); Red Blood Cell (RBC) Count 5.65 10x6/uL (3.90-5.03); White Blood Cell (WBC) Count 11.75 10x3/uL (3.5-10.5)
[2024-12-11 19:07] LABS: ALT (SGPT) 40 U/L (8-55); AST (SGOT) 35 U/L (5-34); Albumin 4.2 g/dL (3.5-5.0); Alkaline Phosphatase 62 U/L (40-110); Anion Gap 16 mmol/L (10-20); BUN (Urea Nitrogen) 10 mg/dL (7.0-18.7); Bilirubin, Total 0.4 mg/dL (0.2-1.2); Calc. Creatinine Clearance 0 mL/min (70-130); Calcium 9.8 mg/dL (7.8-10.44); Carbon Dioxide 19 mmol/L (22-29); Chloride 108 mmol/L (98-107); Estimated GFR 90; Globulin 3.7 g/dL (2.4-3.5); Glucose 88 mg/dL (70-105); Potassium 4.6 mmol/L (3.5-5.1); Protein, Total 7.9 g/dL (6.0-8.3); Sodium 138 mmol/L (136-145)
[2024-12-11 19:09] LABS: BHCG - Serum Negative (NEGATIVE); Pregs Control Background? CLEAR/WHITE (CLR/WHITE); Pregs Control Bar Appear? YES (CONTROL BAR)
[2024-12-11] MEDS ORDERED: Morphine 4 MG/ML VIAL ONE (19:17)
[2024-12-11] MEDS ORDERED: Ondansetron PF 4 MG/2 ML Vial ONE (19:17)
[2024-12-11 19:22] LABS: Troponin I 0.013 ng/mL (< 0.028)
== END 2024-12-11 20:05 | disposition home or self-care (01) ==
LOC: CSHERS 17:27
DX: R07.9 Chest pain, unspecified (principal); R06.02 Shortness of breath
CPT/HCPCS: 36415; 71045; 80053; 83880; 84484; 84703; 85025; 85379; 93005; 96374; 96375; J2270; J2405

== ENCOUNTER 2025-08-03 09:22 | Emergency (ER) | payer MEDICAID ==
[2025-08-03 10:58] LABS: D-Dimer Test 0.45 mcg/mL (0.19-0.50); INR-International Normal Ratio 2.9; PTT 36.9 sec (22.0-33.0); Prothrombin Time 28.7 sec (9.5-12.1)
[2025-08-03] MEDS ORDERED: Ondansetron PF 4 MG/2 ML Vial ONE (10:58)
[2025-08-03 11:03] LABS: ALT (SGPT) 28 U/L (Less than 34); AST (SGOT) 31 U/L (11-34); Albumin 3.7 g/dL (3.1-4.5); Alkaline Phosphatase 42 U/L (40-110); Anion Gap 14 mmol/L (10-20); BUN (Urea Nitrogen) 9 mg/dL (7.0-18.7); Bilirubin, Total 0.4 mg/dL (0.3-1.2); Calc. Creatinine Clearance 0 mL/min (70-130); Calcium 9.0 mg/dL (7.8-10.44); Carbon Dioxide 22 mmol/L (22-29); Chloride 107 mmol/L (98-107); Globulin 2.9 g/dL (2.4-3.5); Glucose 104 mg/dL (70-105); Potassium 4.1 mmol/L (3.5-5.1); Sodium 139 mmol/L (136-145)
[2025-08-03 11:04] LABS: Troponin I Less than 0.010 ng/mL (< 0.028)
[2025-08-03 11:13] LABS: Hematocrit 38.3 % (34.9-44.5); Hemoglobin 12.2 g/dL (12.0-15.5); Mean Corpuscular Hemoglobin 26.0 pg (27.0-33.0); Mean Corpuscular Volume 81.7 fL (81.6-98.3); Platelet Count 489 10x3/uL (150-450); Red Blood Cell (RBC) Count 4.69 10x6/uL (3.90-5.03); White Blood Cell (WBC) Count 11.68 10x3/uL (3.5-10.5)
[2025-08-03 11:36] LABS: Giant Platelets SLIGHT HPF (0-5); MDiff Complete? YES; Platelet Adequacy Comment Appears Increased; RBC Morphology Within Normal Limits
[2025-08-03] MEDS ORDERED: cefTRIAXone (ROCEPHIN) 2 GM VIAL ONE (13:29)
[2025-08-03] MEDS ORDERED: Azithromycin 500 MG VIAL ONE ×2 (13:29→14:05)
[2025-08-03] MEDS ORDERED: Furosemide 100 MG (10 mL) VIAL ONE (13:29)
== END 2025-08-03 18:24 | disposition short-term general hospital (02) ==
LOC: CSHERS 09:22
DX: I50.9 Heart failure, unspecified (principal); J18.9 Pneumonia, unspecified organism; I25.10 Atherosclerotic heart disease of native coronary artery without angina pectoris; I25.2 Old myocardial infarction; Z79.899 Other long term (current) drug therapy; Z79.82 Long term (current) use of aspirin; Z79.51 Long term (current) use of inhaled steroids; Z86.718 Personal history of other venous thrombosis and embolism; Z55.6 Problems related to health literacy; Z86.711 Personal history of pulmonary embolism
CPT/HCPCS: 71045; 80053; 83880; 84484; 85025; 85379; 85610; 85730; 87428; 93005; 94760; 96365; 96366; 96367; 96375; 96376; J0456; J0696; J1940; J2060; J2270; J2405; J3010

== ENCOUNTER 2025-10-09 13:35 | Emergency (ER) | payer MEDICAID ==
[2025-10-09 14:36] LABS: INR-International Normal Ratio 1.1; PTT 32.9 sec (22.0-33.0); Prothrombin Time 11.7 sec (9.5-12.1)
[2025-10-09 14:39] LABS: BHCG - Serum Negative (NEGATIVE); Pregs Control Background? CLEAR/WHITE (CLR/WHITE); Pregs Control Bar Appear? YES (CONTROL BAR)
[2025-10-09 14:48] LABS: #Basophils 0.16 10x3/uL (0.0-0.2); #Eosinophils 0.68 10x3/uL (0.0-0.5); #Monocytes 1.08 10x3/uL (0.0-1.1); #Neutrophils 6.98 10x3/uL (1.5-8.4); %Basophils 1.2 % (0.0-2.0); %Eosinophils 5.0 % (0.0-6.0); %Lymphocytes 34.0 % (18.0-47.0); %Monocytes 8.0 % (0.0-10.0); %Neutrophils 51.4 % (40.0-75.0); Hematocrit 44.9 % (34.9-44.5); Hemoglobin 14.8 g/dL (12.0-15.5); Mean Corpuscular Hemoglobin 27.7 pg (27.0-33.0); Mean Corpuscular Volume 84.1 fL (81.6-98.3); Platelet Count 542 10x3/uL (150-450); Red Blood Cell (RBC) Count 5.34 10x6/uL (3.90-5.03); White Blood Cell (WBC) Count 13.58 10x3/uL (3.5-10.5)
[2025-10-09 14:51] LABS: Troponin I Less than 0.010 ng/mL (< 0.028)
[2025-10-09 14:52] LABS: ALT (SGPT) 25 U/L (Less than 34); AST (SGOT) 23 U/L (11-34); Albumin 4.2 g/dL (3.1-4.5); Alkaline Phosphatase 58 U/L (40-110); Anion Gap 14 mmol/L (10-20); BUN (Urea Nitrogen) 11 mg/dL (7.0-18.7); Bilirubin, Total 0.5 mg/dL (0.3-1.2); Calc. Creatinine Clearance 0 mL/min (70-130); Calcium 9.7 mg/dL (7.8-10.44); Carbon Dioxide 22 mmol/L (22-29); Chloride 108 mmol/L (98-107); Globulin 3.3 g/dL (2.4-3.5); Glucose 94 mg/dL (70-105); Lipase 18 U/L (8-78); Potassium 4.6 mmol/L (3.5-5.1); Sodium 139 mmol/L (136-145)
== END 2025-10-09 16:29 | disposition home or self-care (01) ==
LOC: CSHERS 13:35
DX: R07.9 Chest pain, unspecified (principal); I25.2 Old myocardial infarction; I50.9 Heart failure, unspecified
CPT/HCPCS: 36415; 80053; 83690; 84484; 84703; 85025; 85610; 85730; 93005; 94760; 96374; 96375; J2272

== ENCOUNTER 2025-10-25 12:32 | Emergency (ER) | payer MEDICAID ==
[2025-10-25 14:14] LABS: #Basophils 0.12 10x3/uL (0.0-0.2); #Eosinophils 0.94 10x3/uL (0.0-0.5); #Monocytes 1.06 10x3/uL (0.0-1.1); #Neutrophils 6.03 10x3/uL (1.5-8.4); %Basophils 1.0 % (0.0-2.0); %Eosinophils 8.1 % (0.0-6.0); %Lymphocytes 29.2 % (18.0-47.0); %Monocytes 9.2 % (0.0-10.0); %Neutrophils 52.2 % (40.0-75.0); Hematocrit 42.8 % (34.9-44.5); Hemoglobin 14.4 g/dL (12.0-15.5); Mean Corpuscular Hemoglobin 28.1 pg (27.0-33.0); Mean Corpuscular Volume 83.4 fL (81.6-98.3); Platelet Count 385 10x3/uL (150-450); Red Blood Cell (RBC) Count 5.13 10x6/uL (3.90-5.03); White Blood Cell (WBC) Count 11.57 10x3/uL (3.5-10.5)
[2025-10-25 14:38] LABS: D-Dimer Test 0.44 mcg/mL (0.19-0.50); INR-International Normal Ratio 1.0; PTT 25.1 sec (22.0-33.0); Prothrombin Time 11.2 sec (9.5-12.1)
[2025-10-25 14:55] LABS: Troponin I Less than 0.010 ng/mL (< 0.028)
[2025-10-25 14:59] LABS: ALT (SGPT) 49 U/L (Less than 34); AST (SGOT) 41 U/L (11-34); Albumin 3.9 g/dL (3.1-4.5); Alkaline Phosphatase 57 U/L (40-110); Anion Gap 16 mmol/L (10-20); BUN (Urea Nitrogen) 13 mg/dL (7.0-18.7); Bilirubin, Total 0.3 mg/dL (0.3-1.2); Calc. Creatinine Clearance 0 mL/min (70-130); Calcium 9.2 mg/dL (7.8-10.44); Carbon Dioxide 20 mmol/L (22-29); Chloride 107 mmol/L (98-107); Globulin 3.2 g/dL (2.4-3.5); Glucose 99 mg/dL (70-105); Lipase 15 U/L (8-78); Potassium 4.6 mmol/L (3.5-5.1); Sodium 138 mmol/L (136-145)
[2025-10-25] MEDS ORDERED: Dexamethasone 10 MG/ML VIAL ONE (16:18)
[2025-10-25] MEDS ORDERED: Acetaminophen 325 MG TAB ONE (16:19)
== END 2025-10-25 16:31 | disposition home or self-care (01) ==
LOC: CSHERS 12:32
DX: J06.9 Acute upper respiratory infection, unspecified (principal); I25.2 Old myocardial infarction; I50.9 Heart failure, unspecified; Z86.711 Personal history of pulmonary embolism; Z86.718 Personal history of other venous thrombosis and embolism; Z79.82 Long term (current) use of aspirin; Z79.899 Other long term (current) drug therapy
CPT/HCPCS: 36415; 71045; 80053; 83690; 83880; 84484; 85025; 85379; 85610; 85730; 87428; 93005; J1100; Q0162